=== PATIENT | female | born 1990 | race Caucasian/White ===

== ENCOUNTER 2019-11-19 12:02 | Emergency (ER) | payer BC, OTHER ==
[2019-11-19 12:08] VITALS: RESP 18
[2019-11-19] MEDS ORDERED: KETOROLAC 15 MG/ML 1 ML VIAL IM STA (12:38)
[2019-11-19] MEDS ORDERED: methylPREDNISolone SOD SUCCI 125 MG/2 ML VIAL IM ONE (12:38)
[2019-11-19 13:46] VITALS: BP 136/81; PULSE 66; TEMP 98
--- NOTE | 2019-11-19 13:46 | ED ---
General Adult HPI - General Chief complaint: Back Pain/Injury Stated complaint: low back pain Time Seen by Provider: 11/19/19 12:16 Source: patient, RN notes reviewed Mode of arrival: ambulatory Limitations: no limitations - History of Present Illness Initial comments: 29 year old female presents to the emergency department for a chief complaint of left leg and low back pain. Pain radiates from the back down the left leg. Patient states movement makes the pain worse. States she has some numbness to the lateral aspect of her thigh but denies any other numbness or tingling. Denies weakness of the legs. Denies fevers or chills. Denies changes in bladder or bowel movements. Denies saddle anesthesia. 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 Patient reports this pain worsened 2-3 days ago. States she cannot bend overall the way. States walking is painful but she does not have any difficulty doing so. Patient called orthopedics and they stated she needed a referral also to go to the ER.Patient has no other complaints at this time including shortness of breath, chest pain, abdominal pain, nausea or vomiting, headache, or visual changes. - Related Data Previous Rx's Medication Instructions Recorded predniSONE 50 mg PO DAILY #5 tablet 11/19/19 Allergies Allergy/AdvReac Type Severity Reaction Status Date / Time Sulfa (Sulfonamide Allergy Unknown Verified 11/19/19 13:12 Antibiotics) Childhood Review of Systems ROS Statement: Those systems with pertinent positive or pertinent negative responses have been documented in the HPI. ROS Other: All systems not noted in ROS Statement are negative. Past Medical History Past Medical History: No Reported History Additional Past Medical History / Comment(s): chronic back pain, herniated discs History of Any Multi-Drug Resistant Organisms: None Reported Past Surgical History: No Surgical Hx Reported Past Psychological History: No Psychological Hx Reported Smoking Status: Never smoker Past Alcohol Use History: Occasional Past Drug Use History: None Reported General Exam Limitations: no limitations General appearance: alert, in no apparent distress Head exam: Present: atraumatic, normocephalic, normal inspection Eye exam: Present: normal appearance, PERRL, EOMI. Absent: scleral icterus, conjunctival injection, periorbital swelling ENT exam: Present: normal exam, mucous membranes moist Neck exam: Present: normal inspection. Absent: tenderness, meningismus, lymphadenopathy Respiratory exam: Present: normal lung sounds bilaterally. Absent: respiratory distress, wheezes, rales, rhonchi, stridor Cardiovascular Exam: Present: regular rate, normal rhythm, normal heart sounds. Absent: systolic murmur, diastolic murmur, rubs, gallop, clicks GI/Abdominal exam: Present: soft, normal bowel sounds. Absent: distended, tenderness, guarding, rebound, rigid Extremities exam: Present: full ROM (Full range of motion of the left leg however patient has pain with flexion of the left hip), normal capillary refill (Capillary refill less than 2 seconds, DP pulse 2+), other (Sensation intact throughout lower extremity. Strength 5 out of 5 in bilateral lower extremities.). Absent: calf tenderness (No erythema edema. Negative Homans sign) Back exam: Absent: full ROM (Patient has 45 flexion, extension to neutral position of the lumbar spine.), vertebral tenderness Neurological exam: Present: alert Course Vital Signs 11/19/19 12:05 Temperature 98.7 F Pulse Rate 80 Respiratory 18 Rate Blood Pressure 116/79 O2 Sat by Pulse 100 Oximetry Medical Decision Making - Medical Decision Making HCG was obtained which is negative. Patient was treated with Toradol and a steroid injection. Patient will be given steroids for the next 5 days. She will follow up with orthopedics, referral will be given. If she has worsening symptoms such as any red flag symptoms which were discussed in depth with her she will return to the emergency room. Patient is requesting referral to Dr. Villasenor. Disposition Clinical Impression: Lumbar radiculopathy Disposition: HOME SELF-CARE Condition: Good Instructions (If sedation given, give patient instructions): Acute Low Back Pain (ED), Sciatica (ED) Additional Instructions: Please take steroid starting tomorrow. Take Tylenol for pain on days you're taking steroid. After you finish your course of steroids you can take Motrin as well. Follow up with orthopedics. If you have any worsening symptoms such as bladder or bowel changes, weakness of lower extremities, saddle anesthesia, fevers, or any other worsening symptoms return to the ER. Prescriptions: predniSONE 50 mg PO DAILY #5 tablet Is patient prescribed a controlled substance at d/c from ED?: No Referrals: Vito Soriano MD [Primary Care Provider] - 1-2 days Trenton Villasenor DO [Doctor of Osteopathic Medicine] - 1-2 days Time of Disposition: :43
== END 2019-11-19 14:04 | disposition home or self-care (01) ==
LOC: EC 12:02
DX: M54.16 Radiculopathy, lumbar region (principal); Z88.2 Allergy status to sulfonamides
CPT/HCPCS: 81025; 99283; 96372 ×2; J2930; J1885

== ENCOUNTER 2019-12-04 18:45 | Inpatient (IN) | payer OTHER ==
--- NOTE | 2019-12-04 19:13 | ED ---
Back Pain HPI - General Chief Complaint: Back Pain/Injury Stated Complaint: back pain & leg pain/numbness Time Seen by Provider: 12/04/19 19:02 Source: patient Limitations: no limitations - Related Data Previous Rx's Medication Instructions Recorded predniSONE 50 mg PO DAILY #5 tablet 11/19/19 Allergies Allergy/AdvReac Type Severity Reaction Status Date / Time Sulfa (Sulfonamide Allergy Unknown Verified 12/04/19 18:55 Antibiotics) Childhood Review of Systems ROS Statement: Those systems with pertinent positive or pertinent negative responses have been documented in the HPI. ROS Other: All systems not noted in ROS Statement are negative. Past Medical History Past Medical History: No Reported History Additional Past Medical History / Comment(s): chronic back pain, herniated discs History of Any Multi-Drug Resistant Organisms: None Reported Past Surgical History: No Surgical Hx Reported Past Psychological History: No Psychological Hx Reported Smoking Status: Never smoker Past Alcohol Use History: Occasional Past Drug Use History: None Reported General Exam Limitations: no limitations Course Vital Signs 12/04/19 12/04/19 18:53 20:16 Temperature 98.7 F Pulse Rate 113 H 86 Respiratory 16 18 Rate Blood Pressure 123/77 115/73 O2 Sat by Pulse 96 96 Oximetry Medical Decision Making - Lab Data Result diagrams: 12/04/19 20:10 12/04/19 20:10 Lab Results 12/04/19 12/04/19 12/04/19 Range/Units 20:10 20:10 20:10 WBC 10.9 H (3.8-10.6) k/uL RBC 4.54 (3.80-5.40) m/uL Hgb 13.7 (11.4-16.0) gm/dL Hct 41.2 (34.0-46.0) % MCV 90.8 (80.0-100.0) fL MCH 30.1 (25.0-35.0) pg MCHC 33.1 (31.0-37.0) g/dL RDW 11.8 (11.5-15.5) % Plt Count 326 (150-450) k/uL Neutrophils % 78 % Lymphocytes % 14 % Monocytes % 5 % Eosinophils % 2 % Basophils % 0 % Neutrophils # 8.6 H (1.3-7.7) k/uL Lymphocytes # 1.5 (1.0-4.8) k/uL Monocytes # 0.5 (0-1.0) k/uL Eosinophils # 0.2 (0-0.7) k/uL Basophils # 0.0 (0-0.2) k/uL Sodium 136 L (137-145) mmol/L Potassium 4.3 (3.5-5.1) mmol/L Chloride 104 (98-107) mmol/L Carbon Dioxide 23 (22-30) mmol/L Anion Gap 9 mmol/L BUN 14 (7-17) mg/dL Creatinine 0.69 (0.52-1.04) mg/dL Est GFR (CKD-EPI)AfAm >90 (>60 ml/min/1.73 sqM) Est GFR (CKD-EPI)NonAf >90 (>60 ml/min/1.73 sqM) Glucose 100 H (74-99) mg/dL Calcium 9.7 (8.4-10.2) mg/dL Phosphorus 3.1 (2.5-4.5) mg/dL Magnesium 1.8 (1.6-2.3) mg/dL Total Bilirubin 0.6 (0.2-1.3) mg/dL AST 22 (14-36) U/L ALT 16 (4-34) U/L Alkaline Phosphatase 76 (38-126) U/L Total Protein 7.4 (6.3-8.2) g/dL Albumin 4.5 (3.5-5.0) g/dL Urine Color Light Yellow Urine Appearance Clear (Clear) Urine pH 7.0 (5.0-8.0) Ur Specific [place] 1.006 (1.001-1.035) Urine Protein Negative (Negative) Urine Glucose (UA) Negative (Negative) Urine Ketones Negative (Negative) Urine Blood Negative (Negative) Urine Nitrite Negative (Negative) Urine Bilirubin Negative (Negative) Urine Urobilinogen <2.0 (<2.0) mg/dL Ur Leukocyte Esterase Negative (Negative) Urine HCG, Qual (Not Detectd) 12/04/19 Range/Units 20:26 WBC (3.8-10.6) k/uL RBC (3.80-5.40) m/uL Hgb (11.4-16.0) gm/dL Hct (34.0-46.0) % MCV (80.0-100.0) fL MCH (25.0-35.0) pg MCHC (31.0-37.0) g/dL RDW (11.5-15.5) % Plt Count (150-450) k/uL Neutrophils % % Lymphocytes % % Monocytes % % Eosinophils % % Basophils % % Neutrophils # (1.3-7.7) k/uL Lymphocytes # (1.0-4.8) k/uL Monocytes # (0-1.0) k/uL Eosinophils # (0-0.7) k/uL Basophils # (0-0.2) k/uL Sodium (137-145) mmol/L Potassium (3.5-5.1) mmol/L Chloride (98-107) mmol/L Carbon Dioxide (22-30) mmol/L Anion Gap mmol/L BUN (7-17) mg/dL Creatinine (0.52-1.04) mg/dL Est GFR (CKD-EPI)AfAm (>60 ml/min/1.73 sqM) Est GFR (CKD-EPI)NonAf (>60 ml/min/1.73 sqM) Glucose (74-99) mg/dL Calcium (8.4-10.2) mg/dL Phosphorus (2.5-4.5) mg/dL Magnesium (1.6-2.3) mg/dL Total Bilirubin (0.2-1.3) mg/dL AST (14-36) U/L ALT (4-34) U/L Alkaline Phosphatase (38-126) U/L Total Protein (6.3-8.2) g/dL Albumin (3.5-5.0) g/dL Urine Color Urine Appearance (Clear) Urine pH (5.0-8.0) Ur Specific [place] (1.001-1.035) Urine Protein (Negative) Urine Glucose (UA) (Negative) Urine Ketones (Negative) Urine Blood (Negative) Urine Nitrite (Negative) Urine Bilirubin (Negative) Urine Urobilinogen (<2.0) mg/dL Ur Leukocyte Esterase (Negative) Urine HCG, Qual Not Detected (Not Detectd) Disposition Clinical Impression: Lumbar radiculopathy, Mechanical back pain, Strain of lumbar region, Sciatica Disposition: ADMITTED IP TO THIS HOSP Condition: Fair Is patient prescribed a controlled substance at d/c from ED?: No Referrals: Vito Soriano MD [Primary Care Provider] - 1-2 days
[2019-12-04] MEDS ORDERED: MORPHINE SULFATE 4 MG/ML SYRINGE IV STA (19:27)
[2019-12-04] MEDS ORDERED: SODIUM CHLORIDE 0.9% 1,000 ML IV STA (19:27)
[2019-12-04] MEDS ORDERED: DEXAMETHASONE SOD PHOSPHATE 10 MG/ML 1 ML VIAL IV STA (19:28)
[2019-12-04] MEDS ORDERED: KETOROLAC 15 MG/ML 1 ML VIAL IVP STA (19:28)
[2019-12-04 20:31] LABS: Basophils % (A) 0 %; Eosinophils # (A) 0.2 k/uL (0-0.7); Eosinophils % (A) 2 %; HCT 41.2 % (34.0-46.0); HGB 13.7 gm/dL (11.4-16.0); Lymphocytes # (A) 1.5 k/uL (1.0-4.8); Lymphocytes % (A) 14 %; MCH 30.1 pg (25.0-35.0); MCHC 33.1 g/dL (31.0-37.0); MCV 90.8 fL (80.0-100.0); Mean Platelet Volume 7.7; Monocytes # (A) 0.5 k/uL (0-1.0); Monocytes % (A) 5 %; Neutrophils # (A) 8.6 k/uL (1.3-7.7); Neutrophils % (A) 78 %; Platelet Count 326 k/uL (150-450); RBC 4.54 m/uL (3.80-5.40); RDW 11.8 % (11.5-15.5); WBC 10.9 k/uL (3.8-10.6)
[2019-12-04 20:41] LABS: ALT 16 U/L (4-34); AST 22 U/L (14-36); African American GFR (CKD) >90 (>60 ml/min/1.73 sqM); Albumin 4.5 g/dL (3.5-5.0); Alkaline Phosphatase 76 U/L (38-126); Anion Gap 9 mmol/L; Appearance,Urine Clear (Clear); Bilirubin,Urine Negative (Negative); Blood Urea Nitrogen 14 mg/dL (7-17); Blood,Urine Negative (Negative); Calcium 9.7 mg/dL (8.4-10.2); Carbon Dioxide 23 mmol/L (22-30); Chloride 104 mmol/L (98-107); Color,Urine Light Yellow; Glucose 100 mg/dL (74-99); Glucose,Urine (UA) Negative (Negative); Ketones,Urine Negative (Negative); Leukocyte Esterase,Urine Negative (Negative); Magnesium 1.8 mg/dL (1.6-2.3); Nitrite,Urine Negative (Negative); Non-African American GFR(CKD) >90 (>60 ml/min/1.73 sqM); Phosphorus 3.1 mg/dL (2.5-4.5); Potassium 4.3 mmol/L (3.5-5.1); Protein,Urine Negative (Negative); Sodium 136 mmol/L (137-145); Specific Gravity,Urine 1.006 (1.001-1.035); Total Bilirubin 0.6 mg/dL (0.2-1.3); Total Protein 7.4 g/dL (6.3-8.2); Urobilinogen,Urine <2.0 mg/dL (<2.0)
--- NOTE | 2019-12-04 21:10 | XR ---
EXAMINATION TYPE: XR chest 2V DATE OF EXAM: 12/04/2019 COMPARISON: 05/23/2013 HISTORY: Chest pain TECHNIQUE: 2 views FINDINGS: Heart and mediastinum are normal. The lungs appear clear. Costophrenic angles are clear. Th ere are no hilar masses. There is slight indistinct right cardiac border. IMPRESSION: Right cardiac border indistinct that could relate to some minimal pleural reaction anteri rosa maria. This appears new compared to old exam..
--- NOTE | 2019-12-04 21:19 | CT ---
EXAMINATION TYPE: CT lumbar spine wo con DATE OF EXAM: 12/04/2019 COMPARISON: None HISTORY: Bilateral leg numbness and pain. Pain felt in lumbar region as well. CT DLP: 775.1 mGycm Automated exposure control for dose reduction was used. The lumbar vertebra have normal alignment. Disc spaces are fairly normal. The posterior elements are intact. There is no compression fracture. Facet joints are intact. There is no evidence of lumbar spi nal stenosis. There is no lumbar paraspinal mass. Sacroiliac joints appear intact. There is small pos terior disc bulging at L4-5 and L5-S1 without significant impingement on the neural elements. IMPRESSION: Mild posterior disc bulging in the lower lumbar spine. No spinal stenosis. No fracture.
[2019-12-04] MEDS ORDERED: MORPHINE SULFATE 4 MG/ML SYRINGE IVP PRN (21:40)
--- NOTE | 2019-12-05 10:56 | MR ---
EXAMINATION TYPE: MR lumbar spine wo/w con DATE OF EXAM: 12/05/2019 COMPARISON: 12/04/2019 HISTORY: Low back pain TECHNIQUE: T1 and T2 axial and sagittal images of the lumbar spine are submitted. FINDINGS: There is no abnormal signal seen within the visualized spinal cord or paraspinal soft tissu es. At L1-2 there is no degenerative disc disease, disc herniation, or canal stenosis. At L2-3 there is no degenerative disc disease, disc herniation, foraminal encroachment or canal steno sis. At L3-4 there is no degenerative disc disease, disc herniation, foraminal encroachment or canal steno sis At L4-5 there is there is disc desiccation. Small annular tear with focal small central disc herniati on and mild effacement of thecal sac. Neural foramina remain patent. At L5-S1 there is a large disc herniation centrally and paracentrally left with extrusion of the disc fragment posteriorly and severe compression of the thecal sac. There also appears to be mass effect upon the exiting left nerve root. Discogenic marrow changes with degenerative disc disease noted. IMPRESSION: 1. Large central disc herniation with extrusion of disc posteriorly and paracentrally to the left. Th ere is significant compression of the thecal sac and nerve roots. There is mass effect upon the left nerve root. Disc material extends inferiorly and posterior to the S1 vertebral segment compatible wit h large extruded disc fragment 2. Annular tear and small central disc herniation L4-L5.
[2019-12-05] MEDS: ENOXAPARIN 40 MG/0.4 ML SYRINGE SQ SCH (12:02)
[2019-12-05] MEDS: DEXAMETHASONE SOD PHOSPHATE 4 MG/ML 1 ML VIAL IV SCH ×2 (12:02→17:56)
[2019-12-05] MEDS: NAPROXEN 250 MG TAB PO SCH ×3 (12:03→21:58)
[2019-12-05] MEDS ORDERED: HYDROmorphone 1 MG/ML 1 ML SYRINGE IVP PRN (13:43)
[2019-12-05] MEDS ORDERED: HYDROmorphone 0.5 MG/0.5 ML SYRINGE IVP PRN (13:43)
--- NOTE | 2019-12-05 13:54 | P.CNOR ---
History of Present Illness - HPI Consult date: 12/05/19 Consult reason: low back pain, other History of present illness: Patient is a very pleasant young woman who presented to the hospital in regards to incapacitating low back and lower extremity pain with numbness and tingling. Patient has chronic history of low back issues but over the past few weeks has been having significant changes with the pain in her lower back. She initially started treatment with the emergency room and her primary care physician as an outpatient. She had taken some medication but was not having any relief. Unfortunately of past couple of days she has been having severe worsening of her symptoms at her back and down her lower extremities. She feels severe numbness tingling and burning at her bilateral lower extremities worse on the left than the right. She feels some weakness as she walks with pain. She says she has 1 incident of urinary urgency as well. She has had being severe pain whenever she coughs or sneezes. She has severe pain when she tries to bend and when she tries to move around in bed. She denies any history of trauma. She denies any injury. Review of Systems As stated per HPI. She has pain with her she coughs or sneezes. The pain extends down her legs and her ankles bilaterally worse on the left than the right. She denies any saddle numbness or paresthesias. She denies changes in bowel function. She denies any chest pain shortness of breath. Denies any recent injury or trauma. She is normally fully active without any significant restrictions. She is just finished with nursing school. 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 History of Any Multi-Drug Resistant Organisms: None Reported Past Surgical History: No Surgical Hx Reported Past Anesthesia/Blood Transfusion Reactions: No Reported Reaction Past Psychological History: Anxiety Smoking Status: Never smoker Past Alcohol Use History: Occasional Past Drug Use History: None Reported - Past Family History Mother Family Medical History: Hypertension Medications and Allergies Home Medications Medication Instructions Recorded Confirmed Type Cyclobenzaprine [Flexeril] 10 mg PO HS PRN 12/04/19 12/04/19 History Allergies Allergy/AdvReac Type Severity Reaction Status Date / Time shellfish derived [Shellfish] Allergy Severe Wheezing Verified 12/05/19 00:17 Sulfa (Sulfonamide Allergy Unknown Unknown Verified 12/05/19 00:17 Antibiotics) Childhood Physical Examination Osteopathic Statement: *. No significant issues noted on an osteopathic structural exam other than those noted in the History and Physical/Consult. - L Spine: dermatomal strength & reflexes bilateral Strength: hip flexion: 5/5 (Pain with hip flexion. Her chest is good excursion deep inspiration and expiration abdomen soft nontender neck is nontender to palp ation upper extremities have full active and passive range of motion) Strength: ankle plantar flexion: 4/5 (Her back is clear without any tenderness. Her lower extremities have positive straight leg raise and positive Lasegue's sign. She has no saddle paresthesias. No hyperreflexia. She has some 4 out of 5 weakness on the left with plantar flexion. Sensory is intact throughout. Abdomen is soft.) Results - Labs Labs: Abnormal Lab Results - Last 24 Hours (Table) 12/04/19 12/04/19 Range/Units 20:10 20:10 WBC 10.9 H (3.8-10.6) k/uL Neutrophils # 8.6 H (1.3-7.7) k/uL Sodium 136 L (137-145) mmol/L Glucose 100 H (74-99) mg/dL H & H 12/04/19 Range/Units 20:10 Hgb 13.7 (11.4-16.0) gm/dL Hct 41.2 (34.0-46.0) % Result Diagrams: 12/04/19 20:10 12/04/19 20:10 - Diagnostic results Lumbar MRI with contrast: report reviewed, image reviewed (The patient has computed tomography scan in the lumbar MRIs well today. I reviewed the above. She has an obvious very large massive disc herniation L5-S1 with extruded disc centrally worse on the left than the right. She has severe stenosis due to disc herniation. There is some disc changes at L) CT Scan - lumbar: report reviewed, image reviewed (Continuing from the lumbar MRI. There is some disc changes L4 5 L5-S1. She has Modic changes L5-S1. There is some disc bulging at L4 5 without extrusion or stenosis.) Assessment and Plan Assessment: Massive disc herniation L5-S1 with severe stenosis lower extremity radiculopathy with mild weakness Degenerative disc disease L4 5 L5-S1 intractable pain Plan: Massive disc herniation L5-S1 with severe stenosis lower extremity radiculopathy with mild weakness Degenerative disc disease L4 5 L5-S1 intractable pain The patient has a massive disc herniation at L5-S1 which correlates very well with her low back and lower extremity symptoms. She is having severe lower extremity radiculopathy with some mild weakness on the left. This relates well with the S1 nerve root where she has her stenosis. She has some chronic changes L4 5 and L5-S1 but I think she has an acute change with disc herniation. She had tried some conservative treatment with medication over the past few weeks but is only having worsening. She is not having any significant benefit with IV steroids thus far. With her significant symptoms and the size of the disc herniation I think that she is a good candidate for surgical intervention in the form of laminectomy discectomy at L5-S1. I think we would be able to get good decompression of the nerve roots and significantly improve her lower extremity symptoms and function. Though she does have some disc degeneration and Modic changes, with her young age and activity I would not plan on pursuing fusion at this point. She does understand that she has had some chronic issues at her lower back and issues in the future as well. Nonetheless, I think that acutely her disc herniation is new and that is causing her severe symptoms at this point. I think she can do very well with laminectomy discectomy L5-S1 in surgery. We discussed possibly conservative treatment further and I will consult interventional pain management as well. The patient is leaning towards possibly surgery and will continue to think about this and discuss it with her mother. If she does pursue surgical intervention we'll start preparation and Her nothing by mouth after midnight and have her sign appropriate consent forms. Time with Patient: Greater than 30
--- NOTE | 2019-12-05 14:36 | P.PN ---
Progress Note - Text Progress Note Date: 12/05/19 This is 29 years old female with a chronic history of low back pain started 11 years ago, she was admitted yesterday because of intractable back pain, with radiation to the lower extremity bilaterally her MRI showed massive herniated disc disease at L5-S1, i.e. discussed with the patient the option of doing lumbar epidural steroid injection but patient reported that she already decided to proceed with the surgical option, patient will be boarded for surgery tomorrow by Dr. Villasenor, and there is no need to do any interventional pain management
--- NOTE | 2019-12-05 18:18 | P.HPIM ---
History of Present Illness H&P Date: 12/05/19 Chief Complaint: No back pain History of presenting complaint: This is a very pleasant 29-year-old patient of Dr. Vito Soriano. 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 She then was found to have herniated disc and she did follow with Dr. Harden.. She was managed conservatively and also had some physical therapy done by Dr. Meeks. About 3 weeks ago patient the lumbar sharp shooting pain down the left buttock burning sensation and presented to the ER. She was given Toradol and IV steroid injection and told to follow with the PCP. Also left ear was made to the orthopedic spine physician Dr. Harden. She also follow up with thepatient Dr. Soriano's office. MRI was scheduled for a few weeks. Patient now presents with worsening pain in the lower back numbness going down the buttock and back of both legs. Slight weakness in walking. Presented to ER. Computed tomography scan done showed mild posterior disc bulging in the lower lumbar spine. Review of systems: GEN.: None EYES: None HEENT: None NECK: None RESPIRATORY: None CARDIOVASCULAR: None GASTROINTESTINAL: None GENITOURINARY: None MUSCULOSKELETAL: As above LYMPHATICS: None HEMATOLOGICAL: None PSYCHIATRY: None NEUROLOGICAL: As above Past medical history to include: Chronic herniated disc 2-11 years ago Social history: Does not smoke or drink alcohol. Lives with her parents. He is a registered nurse currently not working. Physical examination: VITAL SIGNS: 98.3, 89, 16, 1304, 95% room air GENERAL:. BMI 29.1, laying in bed, slightly uncomfortable. EYES: Pupils equal. Conjunctiva normal. HEENT: External appearance of nose and ears normal, oral cavity grossly normal. NECK: JVD not raised; masses not palpable. HEART: First and second heart sounds are normal; no edema. LUNGS: Respiratory rate normal; clear to auscultation. ABDOMEN: Soft, nontender, liver spleen not palpable, no masses palpable. PSYCH: Alert and oriented x3; mood and affect normal. NEUROLOGICAL: [Cranial nerves grossly intact; no facial asymmetry, able to raise the right leg to about 40 left leg to about 30. Increased reflexes on the left knee. Bilateral plantars downgoing. Sensation grossly present. LYMPHATICS: No lymph nodes palpable in the axilla and neck INVESTIGATIONS, reviewed in the clinical context: White count 10.9 hemoglobin 13.7 platelets 26 increased neutrophils potassium 4.3 creatinine 0.69 UA positive Urinary hCG-not detected Lumbar spine CT-mild posterior disc bulging in the lower lumbar spine MRI lumbar spine-large central disc herniation at L5-S1 and paracentrally left with extrusion of the disc fragment posteriorly and severe compression of the thecal sac. Also mass effect upon the exiting left nerve root. Assessment: -This is a patient with known chronic herniation 11 years ago following a gymnast injury. She was then managed conservatively and with physical therapy. Now presents with worsening numbness in both the legs posteriorly and burning sensation of the left leg. Patient now found to have a large central disc herniation at L5-S1 level with severe compression of the thecal sac. Radiculop athy on the left side. -Severe left-sided radiculopathy Plan: Starting the patient on IV dexamethasone and scheduled NSAIDs. Care was discussed with the patient. Questions answered. She was explained about the possibility of surgery. I spoke to Dr. Harden from orthopedic spine. He'll see the patient today. DVT prophylaxis. Expect patient to stay more than 2 nights in the hospital. Past Medical History Past Medical History: No Reported History Additional Past Medical History / Comment(s): chronic back pain, 2 herniated di scs-for 11 years from gymnastics. History of Any Multi-Drug Resistant Organisms: None Reported Past Surgical History: No Surgical Hx Reported Past Anesthesia/Blood Transfusion Reactions: No Reported Reaction Past Psychological History: Anxiety Smoking Status: Never smoker Past Alcohol Use History: Occasional Past Drug Use History: None Reported - Past Family History Mother Family Medical History: Hypertension Medications and Allergies Home Medications Medication Instructions Recorded Confirmed Type Cyclobenzaprine [Flexeril] 10 mg PO HS PRN 12/04/19 12/04/19 History Allergies Allergy/AdvReac Type Severity Reaction Status Date / Time shellfish derived [Shellfish] Allergy Severe Wheezing Verified 12/05/19 00:17 Sulfa (Sulfonamide Allergy Unknown Unknown Verified 12/05/19 00:17 Antibiotics) Childhood Physical Exam Vitals: Vital Signs Temp Pulse Pulse Resp BP BP Pulse Ox 12/05/19 07:59 98 F 75 18 105/64 98 12/05/19 00:03 98.4 F 97 18 125/83 97 12/04/19 23:53 98.3 F 89 16 113/74 95 12/04/19 21:40 98.0 F 71 18 114/72 99 12/04/19 20:16 86 18 115/73 96 12/04/19 18:53 98.7 F 113 H 16 123/77 96 Intake and Output 12/04/19 12/05/19 12/05/19 22:59 06:59 14:59 Intake Total 580 Balance 580 Intake: Oral 580 Other: Voiding Method Toilet # Voids 1 Weight 79.379 kg 79.379 kg Results CBC & Chem 7: 12/04/19 20:10 12/04/19 20:10 Labs: Abnormal Lab Results - Last 24 Hours (Table) 12/04/19 12/04/19 Range/Units 20:10 20:10 WBC 10.9 H (3.8-10.6) k/uL Neutrophils # 8.6 H (1.3-7.7) k/uL Sodium 136 L (137-145) mmol/L Glucose 100 H (74-99) mg/dL Thrombosis Risk Factor Assmnt - Choose All That Apply Any of the Below Risk Factors Present?: Yes Each Factor Represents 1 point: Obesity (BMI >25) Other Risk Factors: No Other congenital or acquired thrombophilia - If yes, enter type in comment: No Thrombosis Risk Factor Assessment Total Risk Factor Score: 1 Thrombosis Risk Factor Assessment Level: Low Risk
[2019-12-06] MEDS: DEXAMETHASONE SOD PHOSPHATE 4 MG/ML 1 ML VIAL IV SCH ×5 (00:34→23:22)
[2019-12-06] MEDS: NAPROXEN 250 MG TAB PO SCH ×3 (07:38→22:13)
[2019-12-06] MEDS: ENOXAPARIN 40 MG/0.4 ML SYRINGE SQ SCH (07:38)
--- NOTE | 2019-12-06 07:43 | P.PN ---
Progress Note - Text Progress Note Date: 12/06/19 The patient is seen and examined at bedside. She continues to have severe pain in her bilateral lower extremities. I appreciate the consult from interventional pain management. Her exam is unchanged. She has some mild weakness of plantarflexion on the left. Otherwise she is afebrile stable vital signs. Abdomen is soft nontender. Assessment and plan Massive disc herniation L5-S1 Bilateral lower extremity radiculopathy Incapacitating back and leg pain The patient is having severe symptoms due to her new disc herniation at L5-S1. I think that she is a good candidate for laminectomy decompression with discectomy. She is incapacitated with pain and has been having worsening despit e treatment over the past few weeks. We discussed her treatment options with her at length ranging from continuing conservative treatment to possibly of injections and possible surgery. We discussed the risk, patient's alternatives and benefits of surgery including but not limited to risk of bleeding risk of infection risk and need for further surgery. She understands these risks and her issues and she would like to proceed with surgical intervention as soon as possible. We'll plan for laminotomy decompression with discectomy at L5-S1 with her today. She should maintain her nothing by mouth status. We'll hold her Lovenox today.
[2019-12-06] MEDS: SODIUM CHLORIDE 0.9% 1,000 ML IV SCH ×4 (07:55→20:32)
[2019-12-06] MEDS ORDERED: SUCCINYLCHOLINE CHLORIDE 100 MG/5 ML SYR IV ONE (16:54)
[2019-12-06] MEDS ORDERED: MIDAZOLAM 2 MG/2 ML VIAL ONE (16:54)
[2019-12-06] MEDS ORDERED: PROPOFOL 10 MG/ML 20 ML VIAL IV ONE (16:54)
[2019-12-06] MEDS ORDERED: fentaNYL (PF) 50 MCG/ML 2 ML AMP ONE (16:54)
[2019-12-06] MEDS ORDERED: LIDOCAINE 1% INJ 10MG/ML (20 ML MDV) ONE (16:54)
[2019-12-06] MEDS ORDERED: HYDROmorphone (PF) 1 MG/ML ONE (16:54)
[2019-12-06] MEDS ORDERED: LIDOCAINE 0.5%-EPI 1:200,000 50 ML VIAL SQ ONE ×2 (17:00)
[2019-12-06] MEDS ORDERED: SODIUM CHLORIDE 0.9% 50 ML with ceFAZolin 2,000 MG IV ONE ×2 (17:15)
[2019-12-06] MEDS ORDERED: methylPREDNISolone ACETATE 80 MG/ML 1 ML VIAL INTRAARTIC ONE ×2 (17:29→18:07)
[2019-12-06] MEDS ORDERED: GELATIN SPONGE,ABSORB (SMALL) 1 EACH SPONGE TOPICAL ONE (17:29)
[2019-12-06] MEDS ORDERED: THROMBIN (BOVINE) 5,000 UNIT VIAL TOPICAL ONE (17:31)
[2019-12-06] MEDS ORDERED: ceFAZolin 1,000 MG in SODIUM CHLORIDE 0.9% 1,000 ML IRRIGATION ONE (17:34)
[2019-12-06] MEDS ORDERED: HYDROmorphone 1 MG/ML 1 ML SYRINGE IVP PRN (18:33)
[2019-12-06] MEDS ORDERED: HYDROmorphone 0.5 MG/0.5 ML SYRINGE IVP PRN (18:33)
[2019-12-06] MEDS ORDERED: BENZOCAINE/MENTHOL LOZENG 1 EACH LOZENGE MUCOUS MEM PRN (18:33)
[2019-12-06] MEDS ORDERED: HYDROcodone/APAP 5-325MG 1 EACH TAB PO PRN ×2 (18:35)
[2019-12-06] MEDS ORDERED: IBUPROFEN 600 MG TAB PO PRN (18:35)
[2019-12-06] MEDS ORDERED: ONDANSETRON 4 MG/2 ML VIAL IVP PRN (18:35)
[2019-12-06] MEDS ORDERED: KETOROLAC 15 MG/ML 1 ML VIAL IVP PRN (18:35)
--- NOTE | 2019-12-06 18:42 | P.OP ---
Date of Procedure: 12/06/19 Preoperative Diagnosis: Massive Herniated nucleus pulposis L5-S1, lower extremity radiculopathy, degenerative disc disease Postoperative Diagnosis: Same Anesthesia: GETA Pathology: none sent Condition: stable Disposition: PACU Description of Procedure: BRIEF OPERATIVE NOTE Preoperative Diagnosis:Massive Herniated nucleus pulposis L5-S1, lower extremity radiculopathy, degenerative disc disease Postoperative Diagnosis:Massive Herniated nucleus pulposis L5-S1, lower extremity radiculopathy, degenerative disc disease Procedure: Laminectomy and decompression L5-S1 Discectomy for decompression L5-S1 Use of fluoroscopic guidance Surgeon: Dr. Villasenor Bag Maker: Surgical scrub nurse Anesthesia: General anesthesia per Dr. Garcia Estimated blood loss: Approximately 50 mL Complications: None apparent Components implanted: None Disposition: To recovery room in good stable condition. OPERATIVE INDICATIONS The patient has been having severe issues in their lower back and lower extremities. She has long-term low back pain but several weeks ago was having increased of her back pain severely. She attempted conservative treatment however was continued have worsening and then 2 weeks ago had incapacitating increase of the severity of her pain at her back and lower extremities. She is having some weakness at her lower extremities and was essentially bedbound due to her pain and symptoms. She is found to have a massive disc herniation at L5- S1 which correlated well with her low back and lower extremity symptoms. The patient has been through conservative treatment. Despite this she was having worsening. We discussed the possibility of interventional pain management with the patient's massive disc herniation as well as her lower extremity symptoms and incapacitating pain she was initially in pursuing surgical options as soon as possible. We discussed various treatment options including surgery, and the patient wishes to proceed with surgery We discussed the risk, patient's alternatives and benefits of surgery including but not limited to, risk of bleeding risk of infection, risk of need for further surgery, risk of decreased, loss of motion, loss of function, nerve damage, paralysis, heart attack, blindness and . OPERATIVE SUMMARY After discussing all the risks, patient alternatives and benefits at length, the patient elected to proceed with surgical intervention, signed informed consent, and presented for their procedure. The patient was seen and examined in the preoperative holding area and the surgical site was marked. The patient was given antibiotics and brought to the operating room. The patient was sedated and intubated by anesthesia in standard fashion. The patient was positioned on to the operating room table in a prone position on the appropriate frame which was well-padded and well molded. We were careful to pad any bony prominences and pressure points. We were careful to maintain the patient's cervical spine and good neutral alignment and position throughout. The patient was prepped and draped in a normal standard fashion. An appropriate timeout and keystone protocol performed. We were able to proceed with the surgery. Fluoroscopy was utilized to establish the appropriate level. The local wound area was infiltrated with local anesthetic. An incision was made at the midline longitudinally over the appropriate levels at L5-S1. Dissection was taken down subcutaneously to the level of the fascia which was split midline. Dissection was taken over the lamina. Intraoperative fluoroscopy was taken which showed a marker at the appropriate level of L5-S1. With the appropriate level positively confirmed, we were able to proceed with laminectomy. The wound was copiously irrigated and suctioned dry as had been done periodically throughout the case. I performed a laminectomy on the left side of L5-S1 with a combination of curettes and a high-speed bur and Kerrison rongeurs. A small medial facetectomy was performed again further access. A partial foraminotomy was also performed. Portions of the ligamentum flavum were taken down to expose the dura and traversing nerve root. I was able to mobilize the traversing nerve root and gain access to the disc space. Note was made of obvious compression from the disc. The disc herniation was massive and quite centralized. Protecting the soft tissue structures, a small annulotomy was established. It took significant amount of dissection and manipulation in order to free up the disc. I was able to perform discectomy and remove any extruded disc fragments and any loose fragments from within the disc itself. The disc herniation was massive when it was extruded and we are able take pictures of it. It measured approximately 3 cm in size. There is some significant disc desiccation noted. I tried to preserve the disc annulus that appeared stable. There were no further extruded fragments noted. There is no evidence of dural tear or leak. Good hemostasis maintained. The wound was copiously irrigated and suctioned dry. Good decompression and discectomy was noted. We were able to proceed with closure. The fascia was closed for a watertight closure. The subcuticular tissue was closed with absorbable suture. The wound was cleaned and dried and dressed with the appropriate dressing. The drapes were broken down. The patient was gently rolled back onto their hospital bed being careful to maintain their cervical spine and good neutral alignment and position. They were woken up by anesthesia, extubated, and brought to the recovery room in good stable condition. The patient will be admitted to the hospital for observation and for appropriate postoperative care, medical management and monitoring. We will continue to follow them closely about the postoperative course.
[2019-12-06] MEDS ORDERED: ONDANSETRON 4 MG/2 ML VIAL IVP ONE (19:06)
--- NOTE | 2019-12-06 21:44 | P.PN ---
Progress Note - Text Progress Note Date: 12/06/19 Chief Complaint: Worsening back pain History of presenting complaint: This is a very pleasant 29-year-old patient of Dr. Vito Soriano. 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 She then was found to have herniated disc and she did follow with Dr. Harden.. She was managed conservatively and also had some physical therapy done by Dr. Meeks. About 3 weeks ago patient the lumbar sharp shooting pain down the left buttock burning sensation and presented to the ER. She was given Toradol and IV steroid injection and told to follow with the PCP. Also left ear was made to the orthopedic spine physician Dr. Harden. She also follow up with thepatient Dr. Soriano's office. MRI was scheduled for a few weeks. Patient now presents with worsening pain in the lower back numbness going down the buttock and back of both legs. Slight weakness in walking. Presented to ER. Computed tomography scan done showed mild posterior disc bulging in the lower lumbar spine. MRI showed large spinal disc herniation at L5-S1 with severe compression of the thecal sac. And compressing upon the exiting left nerve root. Dr. Harden from orthopedics was consulted. Patient started IV steroids and NSAIDs. Today-so the patient this morning. Awaiting to go down for surgery later today. Lower back pain is controlled. No urine incontinence. Review of systems: Was done for constitutional, cardiovascular, GI, pulmonary. relevant finding as above Active Medications Hydrocodone Bitart/Acetaminophen (Hydrocodone/Apap 5-325mg 1 Each Tab) 1 each PO Q4HR PRN PRN Reason: Moderate Pain Hydrocodone Bitart/Acetaminophen (Hydrocodone/Apap 5-325mg 1 Each Tab) 2 each PO Q4HR PRN PRN Reason: Moderate Pain Benzocaine/Menthol (Benzocaine/Menthol Lozeng 1 Each Lozenge) 1 each MUCOUS MEM Q4HR PRN PRN Reason: Sore Throat Dexamethasone Sodium Phosphate (Dexamethasone Sod Phosphate 4 Mg/Ml 1 Ml Vial) 4 mg IV Q6HR [facility] Last Admin: 12/06/19 20:31 Dose: Not Given Documented by: Enoxaparin Sodium (Enoxaparin 40 Mg/0.4 Ml Syringe) 40 mg SQ DAILY [facility] Last Admin: 12/06/19 07:38 Dose: Not Given Documented by: Hydromorphone HCl (Hydromorphone 0.5 Mg/0.5 Ml Syringe) 0.5 mg IVP Q4HR PRN PRN Reason: Pain SCALE 1-5 Hydromorphone HCl (Hydromorphone 1 Mg/Ml 1 Ml Syringe) 1 mg IVP Q4HR PRN PRN Reason: Pain SCALE 6-10 Hydromorphone HCl (Hydromorphone 0.5 Mg/0.5 Ml Syringe) 0.5 mg IVP Q4HR PRN PRN Reason: Pain Hydromorphone HCl (Hydromorphone 1 Mg/Ml 1 Ml Syringe) 1 mg IVP Q4HR PRN PRN Reason: Pain Sodium Chloride (Saline 0.9%) 1,000 mls @ 40 mls/hr IV .Q24H [facility] Last Admin: 12/06/19 16:54 Dose: 700 mls Documented by: Sodium Chloride (Saline 0.9%) 1,000 mls @ 75 mls/hr IV .[id number] [facility] Last Admin: 12/06/19 20:32 Dose: Not Given Documented by: Cefazolin Sodium 2 gm/ Sodium (Chloride) 50 mls @ 100 mls/hr IVPB Q8HR [facility] Stop: 12/07/19 08:29 Ibuprofen (Ibuprofen 600 Mg Tab) 600 mg PO Q6HR PRN PRN Reason: Mild Pain Ketorolac Tromethamine (Ketorolac 15 Mg/Ml 1 Ml Vial) 15 mg IVP Q6HR PRN PRN Reason: Pain Stop: 12/09/19 00:01 Morphine Sulfate (Morphine Sulfate 4 Mg/Ml Syringe) 4 mg IVP Q4HR PRN PRN Reason: Pain Last Admin: 12/05/19 00:21 Dose: 4 mg Documented by: Naproxen (Naproxen 250 Mg Tab) 250 mg PO TID [facility] Last Admin: 12/06/19 17:19 Dose: Not Given Documented by: Ondansetron HCl (Ondansetron 4 Mg/2 Ml Vial) 4 mg IVP Q6HR PRN PRN Reason: Nausea Physical examination: VITAL SIGNS: 98.3, 62, 16, 105/69, 99% on room air GENERAL:. laying in bed, comfortable. EYES: Pupils equal. Conjunctiva normal. NECK: JVD not raised; masses not palpable. HEART: First and second heart sounds are normal; no edema. LUNGS: Respiratory rate normal; clear to auscultation. ABDOMEN: Soft, nontender, liver spleen not palpable, no masses palpable. PSYCH: Alert and oriented x3; mood and affect normal. NEUROLOGICAL: [Cranial nerves grossly intact; no facial asymmetry, able to raise the right leg to about 40 left leg to about 30. Increased reflexes on the left knee. Bilateral plantars downgoing. Sensation grossly present. INVESTIGATIONS, reviewed in the clinical context: White count 10.9 hemoglobin 13.7 platelets 26 increased neutrophils potassium 4.3 creatinine 0.69 UA positive Urinary hCG-not detected Lumbar spine CT-mild posterior disc bulging in the lower lumbar spine MRI lumbar spine-large central disc herniation at L5-S1 and paracentrally left with extrusion of the disc fragment posteriorly and severe compression of the thecal sac. Also mass effect upon the exiting left nerve root. Assessment: -This is a patient with known chronic herniation 11 years ago following a gymnast injury. She was then managed conservatively and with physical therapy. Now presents with worsening numbness in both the legs posteriorly and burning s ensation of the left leg. Patient now found to have a large central disc herniation at L5-S1 level with severe compression of the thecal sac. Radiculopathy on the left side. -Severe left-sided radiculopathy Plan: patient on IV dexamethasone and scheduled NSAIDs. Patient related this evening underwent L5-S1 laminectomy and discectomy.
[2019-12-07] MEDS: DEXAMETHASONE SOD PHOSPHATE 4 MG/ML 1 ML VIAL IV SCH (05:47)
[2019-12-07] MEDS: ENOXAPARIN 40 MG/0.4 ML SYRINGE SQ SCH (07:02)
[2019-12-07] MEDS: NAPROXEN 250 MG TAB PO SCH (07:02)
--- NOTE | 2019-12-07 07:20 | FL ---
Fluoroscopy HISTORY: Lumbar laminectomy 4 seconds fluoroscopy time supplied to the referring clinician. 1 intraoperative C-arm images docume nt the procedure. See dictated report from orthopedic surgery.
--- NOTE | 2019-12-07 07:21 | XR ---
Limited lumbar spine HISTORY: Lumbar laminectomy Single intraoperative C-arm image documents the procedure
[2019-12-07] MEDS: SODIUM CHLORIDE 0.9% 1,000 ML IV SCH (08:26)
[2019-12-07 09:22] VITALS: BP 187/65; PULSE 65; RESP 18; TEMP 98.3
--- NOTE | 2019-12-07 10:16 | P.DS ---
Providers Date of admission: 12/05/19 11:45 Attending physician: Mane Guzman Consults: 12/05/19 11:52 Consult Physician Routine Consulting Provider: Trenton Villasenor Consult Reason/Comments: herniated lumbar disc Do you want consulting provider notified?: Already Contacted Primary care physician: Vito Mathur [facility] Course: The patient presented on the on the day of admission due to her severe back pain and lower extremity radiculopathy. She was found have a massive disc herniation L5-S1 which quite well with her symptoms. She was incapacitated due to her pain from the disc herniation. After discussing various treatment options including conservative treatment interventional pain management in the possibly of surgery patient like to proceed with surgical intervention and underwent surgery as per her operative note yesterday. The patient says she is doing significant benefit. She is very happy with results in her lower extremities. She says she is moving around quite well. She has some soreness around her surgical site as expected and they're still some numbness at her left leg as expected. Physical Exam The incision site is clean dry and intact. There is no erythema no drainage. There is no purulence no evidence of infection. There is no bleeding on the site. The dressings intact. Abdomen soft and nontender. Chest has good excursion with deep inspiration and expiration. The patient has active and passive range of motion intact at the upper and lower extremities. There is no acute change in neurologic status. She has sustained dorsal flexion plantar flexion and EHL there is still some mild weakness of plantar flexion left. Calves and thighs soft and nontender. Hospital Course Postoperative day 1 status post laminectomy decompression and discectomy of L5- S1 for her massive disc herniation with back pain and lower extremity radiculopathy The patient is doing very well and is happy with results of surgery. The patient has been making good progress postoperatively. They have completed the prophylactic antibiotics without any signs or symptoms of infection. The patient has been able to advance their diet, and is tolerating diet adequately. The pain was initially controlled with IV medications and is now controlled appropriately with oral medications. The patient has been able to increase their mobilization. She has been able to walk around the area and medical floor. The patient has progressed appropriately. I think they are in good stable condition for discharge today. They will be sent home with appropriate prescriptions. I answered their questions to the best of my ability in a language that they can understand and they are agreeable with the plan. They will follow up as directed in approximately 10 days or sooner if she is having any problems. Patient Condition at Discharge: Good Plan - Discharge Summary Discharge Rx Participant: No New Discharge Prescriptions: New HYDROcodone/APAP 5-325MG [[place] 5] 1 each PO Q4HR PRN #42 tab PRN Reason: Pain No Action Cyclobenzaprine [Flexeril] 10 mg PO HS PRN PRN Reason: Muscle Spasm Discharge Medication List Cyclobenzaprine [Flexeril] 10 mg PO HS PRN 12/04/19 [History] HYDROcodone/APAP 5-325MG [[place] 5] 1 each PO Q4HR PRN #42 tab 12/07/19 [Rx] Follow up Appointment(s)/Referral(s): Vito Soriano MD [Primary Care Provider] - 1-2 days Trenton Villasenor DO [Doctor of Osteopathic Medicine] - 10 Days Activity/Diet/Wound Care/Special Instructions: Keep site clean. May shower with waterproof Tegaderm intact. Do not soak in a tub. After 72 hours postoperatively, patient May remove dressing and then may shower with area uncovered. Leave Steri-Strips intact and allow them to fray off on their own. May ambulate as tolerated. Avoid heavy or rigorous activity. No repetitive bending twisting or lifting. No overhead work. Discharge Disposition: HOME SELF-CARE
--- NOTE | 2019-12-07 19:56 | P.DS ---
Providers Date of admission: 12/05/19 11:45 Expected date of discharge: 12/07/19 Attending physician: Mane Guzman Consults: 12/05/19 11:52 Consult Physician Routine Consulting Provider: Trenton Villasenor Consult Reason/Comments: herniated lumbar disc Do you want consulting provider notified?: Already Contacted Primary care physician: Vito Soriano [facility] Course: Chief Complaint: Worsening back pain History of presenting complaint: This is a very pleasant 29-year-old patient of Dr. Vito Soriano. 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 She then was found to have herniated disc and she did follow with Dr. Harden.. She was managed conservatively and also had some physical therapy done by Dr. Meeks. About 3 weeks ago patient the lumbar sharp shooting pain down the left buttock burning sensation and presented to the ER. She was given Toradol and IV steroid injection and told to follow with the PCP. Also left ear was made to the orthopedic spine physician Dr. Harden. She also follow up with thepatient Dr. Soriano's office. MRI was scheduled for a few weeks. Patient now presents with worsening pain in the lower back numbness going down the buttock and back of both legs. Slight weakness in walking. Presented to ER. Computed tomography scan done showed mild posterior disc bulging in the lower lumbar spine. MRI showed large spinal disc herniation at L5-S1 with severe compression of the thecal sac. And compressing upon the exiting left nerve root. Dr. Harden from orthopedics was consulted. Patient started IV steroids and NSAIDs. Patient taken to the OR. L5-S1 laminectomy was done including disc removal. Today-patient doing well. Ambulating. Pain was controlled. No trouble urination. Cleared by Dr. Harden. Discussed with the patient Consultation: [facility] Physical examination: VITAL SIGNS: 98.3, 65, 18, 97 (room air GENERAL:. laying in bed, comfortable. EYES: Pupils equal. Conjunctiva normal. NECK: JVD not raised; masses not palpable. HEART: First and second heart sounds are normal; no edema. LUNGS: Respiratory rate normal; clear to auscultation. ABDOMEN: Soft, nontender, liver spleen not palpable, no masses palpable. PSYCH: Alert and oriented x3; mood and affect normal. NEUROLOGICAL: She did ambulate to the bathroom comfortably INVESTIGATIONS, reviewed in the clinical context: White count 10.9 hemoglobin 13.7 platelets 26 increased neutrophils potassium 4.3 creatinine 0.69 UA positive Urinary hCG-not detected Lumbar spine CT-mild posterior disc bulging in the lower lumbar spine MRI lumbar spine-large central disc herniation at L5-S1 and paracentrally left with extrusion of the disc fragment posteriorly and severe compression of the thecal sac. Also mass effect upon the exiting left nerve root. Assessment: -This is a patient with known chronic herniation 11 years ago following a gymnast injury. She was then managed conservatively and with physical therapy. Now presents with worsening numbness in both the legs posteriorly and burning sensation of the left leg. Patient now found to have a large central disc herniation at L5-S1 level with severe compression of the thecal sac. Radiculopathy on the left side. Status post surgery -Severe left-sided radiculopathy Disposition: Home Patient Condition at Discharge: Good Plan - Discharge Summary Discharge Rx Participant: No New Discharge Prescriptions: New HYDROcodone/APAP 5-325MG [[place] 5] 1 each PO Q4HR PRN #42 tab PRN Reason: Pain Ibuprofen [Motrin] 600 mg PO Q6HR PRN tab PRN Reason: Mild Pain Continue Cyclobenzaprine [Flexeril] 10 mg PO HS PRN PRN Reason: Muscle Spasm Discharge Medication List Cyclobenzaprine [Flexeril] 10 mg PO HS PRN 12/04/19 [History] HYDROcodone/APAP 5-325MG [[place] 5] 1 each PO Q4HR PRN #42 tab 12/07/19 [Rx] Ibuprofen [Motrin] 600 mg PO Q6HR PRN tab 12/07/19 [Rx] Follow up Appointment(s)/Referral(s): Trenton Villasenor DO [Doctor of Osteopathic Medicine] - 10 Days (office closed at time of discharge. Please call to make appointment) Vito Soriano MD [Primary Care Provider] - 1-2 days (office closed at time of discharge. Please call to make appointment) Patient Instructions/Handouts: Lumbar Discectomy (DC) Activity/Diet/Wound Care/Special Instructions: Keep site clean. May shower with waterproof Tegaderm intact. Do not soak in a tub. After 72 hours postoperatively, patient May remove dressing and then may shower with area uncovered. Leave Steri-Strips intact and allow them to fray off on their own. May ambulate as tolerated. Avoid heavy or rigorous activity. No repetitive bending twisting or lifting. No overhead work. Discharge Disposition: HOME SELF-CARE
== END 2019-12-07 13:00 | disposition home or self-care (01) | DRG 520 ==
LOC: EC 18:45 → 6PED 21:39 → OBSVTOIN 12-05 11:45 → 4SSUR 12-06 20:04
PROVIDERS: ADMIT Hospitalist; ATTEND Hospitalist
PROC: 00NY0ZZ Release Lumbar Spinal Cord, Open Approach (ICD-10-PCS; principal; 2019-12-06 16:40)
PROC: 0SB40ZZ Excision of Lumbosacral Disc, Open Approach (ICD-10-PCS; principal; 2019-12-06 16:40)
DX: M51.17 Intervertebral disc disorders with radiculopathy, lumbosacral region (principal); M48.07 Spinal stenosis, lumbosacral region; M51.16 Intervertebral disc disorders with radiculopathy, lumbar region; F41.9 Anxiety disorder, unspecified; Z88.2 Allergy status to sulfonamides; Z82.49 Family history of ischemic heart disease and other diseases of the circulatory system; Z91.013 Allergy to seafood
CPT/HCPCS: 36415; 71046; 72020; 72131; 72158; 80053; 81003; 81025; 83735; 84100; 85025; 96361; 96374; 96375; 99285

== ENCOUNTER 2021-02-03 23:03 | Emergency (ER) | payer MEDICAID, OTHER ==
[2021-02-03 23:43] VITALS: PULSE 78
--- NOTE | 2021-02-04 01:48 | ED ---
Female Urogenital HPI - General Chief complaint: Vaginal Bleeding Stated complaint: vaginal bleeding, pgt Time Seen by Provider: 02/04/21 00:36 Source: patient, RN notes reviewed Mode of arrival: ambulatory Limitations: no limitations - History of Present Illness Initial comments: Patient is a 30-year-old female presenting to the emergency Department with complaints of vaginal bleeding and cramping that started today. Patient states she had a positive home test earlier this week. Patient states this is her first , her WORK AND FAMILY LIFE CONSULTANT is Dr. Blancas. She denies any strong abdominal pain, only some mild lower abdominal cramping, rates it a 1/10. Patient denies any chest pain or shortness of breath, no fevers or chills. She denies any nausea or vomiting, no diarrhea. She denies history of abdominal surgeries. She has no further complaints. Her vital signs are stable upon arrival. - Related Data Home Medications Medication Instructions Recorded Confirmed Cyclobenzaprine [Flexeril] 10 mg PO HS PRN 12/04/19 12/04/19 Previous Rx's Medication Instructions Recorded HYDROcodone/APAP 5-325MG [[place] 5] 1 each PO Q4HR PRN #42 tab 12/07/19 Ibuprofen [Motrin] 600 mg PO Q6HR PRN tab 12/07/19 Allergies Allergy/AdvReac Type Severity Reaction Status Date / Time shellfish derived [Shellfish] Allergy Severe Wheezing Verified 02/03/21 23:43 Sulfa (Sulfonamide Allergy Unknown Unknown Verified 02/03/21 23:43 Antibiotics) Childhood Review of Systems ROS Statement: Those systems with pertinent positive or pertinent negative responses have been documented in the HPI. ROS Other: All systems not noted in ROS Statement are negative. Past Medical History Past Medical History: No Reported History Additional Past Medical History / Comment(s): chronic back pain, herniated discs History of Any Multi-Drug Resistant Organisms: None Reported Past Surgical History: Back Surgery Past Anesthesia/Blood Transfusion Reactions: No Reported Reaction Past Psychological History: No Psychological Hx Reported Smoking Status: Never smoker Past Alcohol Use History: Occasional Past Drug Use History: None Reported - Past Family History Mother Family Medical History: Hypertension General Exam - General Exam Comments Initial Comments: GENERAL: Patient is well-developed and well-nourished. Patient is nontoxic and in no acute distress. HEAD: Atraumatic, normocephalic. EYES: Pupils equal round and reactive to light, extraocular movements intact, sclera anicteric, conjunctiva are normal. Eyelids were unremarkable. ENT: Moist mucous membranes. NECK: Normal range of motion, supple without lymphadenopathy or JVD. LUNGS: Unlabored respirations. Breath sounds clear to auscultation bilaterally and equal. No wheezes rales or rhonchi. HEART: Regular rate and rhythm without murmurs, rubs or gallops. ABDOMEN: Soft, nontender, normoactive bowel sounds. No guarding, no rebound. No masses appreciated. : Deferred MUSCULOSKELETAL: Normal extremities with adequate strength and normal range of motion, no pitting or edema. No clubbing or cyanosis. NEUROLOGICAL: Patient is alert and oriented x 3. SKIN: Warm, Dry, normal turgor, no rashes or lesions noted. Limitations: no limitations Course Vital Signs 02/03/21 02/04/21 23:38 04:59 Temperature 98.3 F 97.8 F Pulse Rate 78 78 Respiratory 22 18 Rate Blood Pressure 127/76 113/80 O2 Sat by Pulse 100 100 Oximetry Medical Decision Making - Medical Decision Making Patient is a 30-year-old female here, early stages of , presenting for vaginal bleeding and cramping that started today. Her vitals are stable upon arrival. Labs are unremarkable, hCG Quant is only 10.7 today, urine shows no evidence of infection. Ultrasound today shows a possible ectopic gestational sac on the left side, measures approximately 2.5 x 1.8 x 2 cm. There is a structure that could be a pole measuring 9 mm but no evidence of cardiac activity, this could be ectopic demise. Patient's pain is very minimal, she has minimal cramping. Patient's blood type is A+. I did discuss case with Dr. Maria who is telephone order clerk for Dr. Blancas. She recommends a dose of methotrexate, and to follow-up with Dr. Blancas on Monday for repeat hCG levels. I discussed these findings with the patient who is agreeable to this plan of care. Return parameters were discussed with the patient she verbalized unde rstanding. Case discussed with Dr. Rider. - Lab Data Result diagrams: 02/04/21 02:00 02/04/21 02:00 Lab Results 02/04/21 02/04/21 02/04/21 Range/Units 01:55 02:00 02:00 WBC 11.3 H (3.8-10.6) k/uL RBC 4.33 (3.80-5.40) m/uL Hgb 13.7 (11.4-16.0) gm/dL Hct 39.5 (34.0-46.0) % MCV 91.1 (80.0-100.0) fL MCH 31.6 (25.0-35.0) pg MCHC 34.7 (31.0-37.0) g/dL RDW 11.7 (11.5-15.5) % Plt Count 397 (150-450) k/uL MPV 7.2 Neutrophils % 86 % Lymphocytes % 9 % Monocytes % 4 % Eosinophils % 1 % Basophils % 0 % Neutrophils # 9.7 H (1.3-7.7) k/uL Lymphocytes # 1.0 (1.0-4.8) k/uL Monocytes # 0.4 (0-1.0) k/uL Eosinophils # 0.1 (0-0.7) k/uL Basophils # 0.0 (0-0.2) k/uL Sodium 136 L (137-145) mmol/L Potassium 4.3 (3.5-5.1) mmol/L Chloride 104 (98-107) mmol/L Carbon Dioxide 24 (22-30) mmol/L Anion Gap 8 mmol/L BUN 12 (7-17) mg/dL Creatinine 0.68 (0.52-1.04) mg/dL Est GFR (CKD-EPI)AfAm >90 (>60 ml/min/1.73 sqM) Est GFR (CKD-EPI)NonAf >90 (>60 ml/min/1.73 sqM) Glucose 110 H (74-99) mg/dL Calcium 9.5 (8.4-10.2) mg/dL Total Bilirubin 0.4 (0.2-1.3) mg/dL AST 18 (14-36) U/L ALT 12 (4-34) U/L Alkaline Phosphatase 67 (38-126) U/L Total Protein 7.4 (6.3-8.2) g/dL Albumin 4.4 (3.5-5.0) g/dL HCG, Quant 10.7 mIU/mL Urine Color Urine Appearance (Clear) Urine pH (5.0-8.0) Ur Specific [place] (1.001-1.035) Urine Protein (Negative) Urine Glucose (UA) (Negative) Urine Ketones (Negative) Urine Blood (Negative) Urine Nitrite (Negative) Urine Bilirubin (Negative) Urine Urobilinogen (<2.0) mg/dL Ur Leukocyte Esterase (Negative) Urine RBC (0-5) /hpf Urine WBC (0-5) /hpf Ur Squamous Epith Cells (0-4) /hpf Amorphous Sediment (None) /hpf Urine Bacteria (None) /hpf Urine Mucus (None) /hpf Blood Type Blood Type Confirm A Positive Blood Type Recheck Bld Type Recheck Status Antibody Screen Spec Expiration Date 02/04/21 02/04/21 Range/Units 02:00 Unknown WBC (3.8-10.6) k/uL RBC (3.80-5.40) m/uL Hgb (11.4-16.0) gm/dL Hct (34.0-46.0) % MCV (80.0-100.0) fL MCH (25.0-35.0) pg MCHC (31.0-37.0) g/dL RDW (11.5-15.5) % Plt Count (150-450) k/uL MPV Neutrophils % % Lymphocytes % % Monocytes % % Eosinophils % % Basophils % % Neutrophils # (1.3-7.7) k/uL Lymphocytes # (1.0-4.8) k/uL Monocytes # (0-1.0) k/uL Eosinophils # (0-0.7) k/uL Basophils # (0-0.2) k/uL Sodium (137-145) mmol/L Potassium (3.5-5.1) mmol/L Chloride (98-107) mmol/L Carbon Dioxide (22-30) mmol/L Anion Gap mmol/L BUN (7-17) mg/dL Creatinine (0.52-1.04) mg/dL Est GFR (CKD-EPI)AfAm (>60 ml/min/1.73 sqM) Est GFR (CKD-EPI)NonAf (>60 ml/min/1.73 sqM) Glucose (74-99) mg/dL Calcium (8.4-10.2) mg/dL Total Bilirubin (0.2-1.3) mg/dL AST (14-36) U/L ALT (4-34) U/L Alkaline Phosphatase (38-126) U/L Total Protein (6.3-8.2) g/dL Albumin (3.5-5.0) g/dL HCG, Quant mIU/mL Urine Color Light Yellow Urine Appearance Clear (Clear) Urine pH 6.5 (5.0-8.0) Ur Specific [place] 1.007 (1.001-1.035) Urine Protein Negative (Negative) Urine Glucose (UA) Negative (Negative) Urine Ketones Negative (Negative) Urine Blood Trace H (Negative) Urine Nitrite Negative (Negative) Urine Bilirubin Negative (Negative) Urine Urobilinogen <2.0 (<2.0) mg/dL Ur Leukocyte Esterase Negative (Negative) Urine RBC 1 (0-5) /hpf Urine WBC 4 (0-5) /hpf Ur Squamous Epith Cells 1 (0-4) /hpf Amorphous Sediment Rare H (None) /hpf Urine Bacteria Occasional H (None) /hpf Urine Mucus Rare H (None) /hpf Blood Type A Positive Blood Type Confirm Blood Type Recheck No Previous Record Bld Type Recheck Status CABO Indicated Antibody Screen NEGATIVE Spec Expiration Date 02/07/20212299 Disposition Clinical Impression: Ectopic Disposition: HOME SELF-CARE Condition: Stable Instructions (If sedation given, give patient instructions): Ectopic (DC) Additional Instructions: Please return to the Emergency Department if symptoms worsen or any other concerns. Recommend pelvic rest, no intercourse. May take tylenol or motrin for any discomfort. Please follow-up with Dr. Blancas's office on Monday for repeat hCG levels. Is patient prescribed a controlled substance at d/c from ED?: No Referrals: Vito Soriano MD [Primary Care Provider] - 1-2 days Kristyn Blancas DO [Doctor of Osteopathic Medicine] - 1-2 days Time of Disposition: 03:55
[2021-02-04 02:05] LABS: Amorphous Sediment,Urine Rare /hpf; Appearance,Urine Clear (Clear); Bacteria,Urine Occasional /hpf; Bilirubin,Urine Negative (Negative); Blood,Urine Trace (Negative); Color,Urine Light Yellow; Glucose,Urine (UA) Negative (Negative); Ketones,Urine Negative (Negative); Leukocyte Esterase,Urine Negative (Negative); Mucus,Urine Rare /hpf; Nitrite,Urine Negative (Negative); PH, Urine 6.5 (5.0-8.0); Protein,Urine Negative (Negative); RBC,Urine 1 /hpf (0-5); Specific Gravity,Urine 1.007 (1.001-1.035); Squamous Epithelial Cell,Urine 1 /hpf (0-4); Urobilinogen,Urine <2.0 mg/dL (<2.0); WBC,Urine 4 /hpf (0-5)
[2021-02-04 02:12] LABS: Basophils % (A) 0 %; Eosinophils # (A) 0.1 k/uL (0-0.7); Eosinophils % (A) 1 %; HCT 39.5 % (34.0-46.0); HGB 13.7 gm/dL (11.4-16.0); Lymphocytes % (A) 9 %; MCH 31.6 pg (25.0-35.0); MCHC 34.7 g/dL (31.0-37.0); MCV 91.1 fL (80.0-100.0); Mean Platelet Volume 7.2; Monocytes # (A) 0.4 k/uL (0-1.0); Monocytes % (A) 4 %; Neutrophils # (A) 9.7 k/uL (1.3-7.7); Neutrophils % (A) 86 %; Platelet Count 397 k/uL (150-450); RBC 4.33 m/uL (3.80-5.40); RDW 11.7 % (11.5-15.5); WBC 11.3 k/uL (3.8-10.6)
[2021-02-04 02:19] LABS: ALT 12 U/L (4-34); AST 18 U/L (14-36); African American GFR (CKD) >90 (>60 ml/min/1.73 sqM); Albumin 4.4 g/dL (3.5-5.0); Alkaline Phosphatase 67 U/L (38-126); Anion Gap 8 mmol/L; Blood Urea Nitrogen 12 mg/dL (7-17); Calcium 9.5 mg/dL (8.4-10.2); Carbon Dioxide 24 mmol/L (22-30); Chloride 104 mmol/L (98-107); Glucose 110 mg/dL (74-99); Non-African American GFR(CKD) >90 (>60 ml/min/1.73 sqM); Potassium 4.3 mmol/L (3.5-5.1); Sodium 136 mmol/L (137-145); Total Bilirubin 0.4 mg/dL (0.2-1.3); Total Protein 7.4 g/dL (6.3-8.2)
--- NOTE | 2021-02-04 02:39 | US ---
EXAMINATION TYPE: Transabdominal DATE OF EXAM: 02/04/2021 1:45 AM COMPARISON: NONE CLINICAL HISTORY: , bleeding, cramping. Bleeding and cramping. . EXAM PERFORMED: Transvaginal (TV) and Transabdominal (TA) EXAM MEASUREMENTS: GESTATIONAL AGE / DATING Physician Established: Not yet established. Dates by LMP: (4 weeks/5 days) EDC: 10/09/2021 Dates by First Scan: This is first scan. Dates by Current Scan for: No IUP seen. Suspicious left adnexal lesion as mentioned below. MATERNAL ANATOMY Uterus: 7.7 x 5.0 x 3.6 cm. Anteverted. Cluster of anechoic areas seen in cervix: 0.9 x 0.7 x 0.4 cm. Fluid-appearing anechoic area seen in cervix: 1.6 x 0.7 x 0.3 cm. Right Ovary: 3.2 x 2.4 x 2.4 cm. Follicles seen. Left Ovary: 2.8 x 1.6 x 2.1 cm. Follicles seen. Post CDS / Adnexa: *Anechoic area seen within the left adnexa measuring 2.5 x 1.8 x 2.2 cm with hyper echoic component within. Presence of free fluid: None seen. Presence of corpus luteal cyst: Not seen. GESTATION / SURVEY Possible CRL within left adnexa versus other lesion: 0.89 cm. (6 weeks/6 days) Possible MSD Within left adnexa: 2.03 cm. (6 weeks/4 days) Yolk Sac (normal less than 6mm): Not seen. Heart Rate: None seen. IUP: No evidence of IUP. Area seen within left adnexa between uterus and left ovary as mentioned above. Date of LMP: 01/02/2021 Beta HcG (if available): Not available. IMPRESSION: There is possible ectopic gestational sac on the left side. there is a structure that could be a pole that measures 9 mm but there is no evidence of cardia c activity. This could be ectopic demise. Multiple cervical cysts. Empty uterus.
[2021-02-04 02:47] LABS: HCG,Quantitative Serum 10.7 mIU/mL
[2021-02-04] MEDS ORDERED: METHOTREXATE SODIUM (PF) 25 MG/ML 2 ML VIAL IM ONE (03:08)
[2021-02-04 05:01] VITALS: BP 113/80; RESP 18; TEMP 97.8
== END 2021-02-04 04:59 | disposition home or self-care (01) ==
LOC: EC 23:03
DX: O00.90 Unspecified ectopic pregnancy without intrauterine pregnancy (principal); Z72.89 Other problems related to lifestyle; Z3A.01 Less than 8 weeks gestation of pregnancy
CPT/HCPCS: 36415; 86900; 86901; 80053; 85025; 86850; 81001; 84702; 76801; 76817; 99284; 96372; J9260

== ENCOUNTER → 2021-02-07 | Outpatient (CLI) | payer MEDICAID | END | disposition home or self-care (01) | LOC: LABMAIN 16:02 | PROVIDERS: ATTEND Obstetrics & Gynecology Obstetrics | DX: O00.109 Unspecified tubal pregnancy without intrauterine pregnancy (principal); Z3A.00 Weeks of gestation of pregnancy not specified | CPT/HCPCS: 36415; 84702 ==

== ENCOUNTER → 2021-02-10 | Outpatient (CLI) | payer MEDICAID ==
[2021-02-10 11:05] LABS: HCT 37.4 % (37.2-46.3); HGB 12.3 g/dL (12.0-15.0); MCH 31.1 pg (27.0-32.0); MCHC 32.9 g/dL (32.0-37.0); MCV 94.4 fL (80.0-97.0); Mean Platelet Volume 10.2 fL (9.5-12.2); Platelet Count 359 X 10*3/uL (140-440); RBC 3.96 X 10*6/uL (4.10-5.20); RDW 11.9 % (11.5-14.5); WBC 8.24 X 10*3/uL (4.50-10.00)
[2021-02-10 13:07] LABS: ALT 10 U/L (8-44); AST 10 U/L (13-35); African American GFR (CKD) 134.7 (60.0-200.0); Blood Urea Nitrogen 8.5 mg/dL (9.0-27.0); Non-African American GFR(CKD) 116.3 (60.0-200.0)
[2021-02-10 14:09] LABS: HCG,Quantitative Serum <0.1 (0.0-6.0)
== END | disposition home or self-care (01) ==
LOC: LABWHC1 07:32
PROVIDERS: ATTEND Obstetrics & Gynecology Obstetrics
DX: O00.109 Unspecified tubal pregnancy without intrauterine pregnancy (principal); Z3A.00 Weeks of gestation of pregnancy not specified
CPT/HCPCS: 36415; 82565; 84450; 84460; 84520; 84702; 85027

== ENCOUNTER → 2021-03-05 | Outpatient (CLI) | payer MEDICAID, OTHER | END | disposition home or self-care (01) | LOC: LABWHC1 21:20 | PROVIDERS: ATTEND Emergency Medicine | DX: Z20.822 Contact with and (suspected) exposure to COVID-19 (principal) | CPT/HCPCS: 87635 ==

== ENCOUNTER → 2021-03-06 | Outpatient (CLI) | payer MEDICAID, OTHER | END | disposition home or self-care (01) | LOC: LABWHC1 19:32 | PROVIDERS: ATTEND Emergency Medicine | DX: Z20.822 Contact with and (suspected) exposure to COVID-19 (principal) | CPT/HCPCS: 87635 ==

== ENCOUNTER 2022-08-31 14:49 | Emergency (ER) | payer MEDICAID ==
[2022-08-31] MEDS ORDERED: SODIUM CHLORIDE 0.9% 2,000 ML IV STA (16:46)
[2022-08-31] MEDS ORDERED: METOCLOPRAMIDE 5 MG/ML 2 ML VIAL IVP STA (16:46)
[2022-08-31] MEDS ORDERED: PYRIDOXINE 100 MG/ML 1 ML VIAL IVP STA (16:47)
[2022-08-31 17:08] LABS: Basophils % (A) 0 %; Eosinophils # (A) 0.1 k/uL (0-0.7); Eosinophils % (A) 2 %; HCT 40.2 % (34.0-46.0); HGB 13.8 gm/dL (11.4-16.0); Lymphocytes # (A) 1.4 k/uL (1.0-4.8); Lymphocytes % (A) 17 %; MCH 31.6 pg (25.0-35.0); MCHC 34.2 g/dL (31.0-37.0); MCV 92.5 fL (80.0-100.0); Mean Platelet Volume 7.9; Monocytes # (A) 0.4 k/uL (0-1.0); Monocytes % (A) 5 %; Neutrophils # (A) 5.9 k/uL (1.3-7.7); Neutrophils % (A) 74 %; Platelet Count 310 k/uL (150-450); RBC 4.35 m/uL (3.80-5.40); WBC 7.9 k/uL (3.8-10.6)
[2022-08-31 17:19] LABS: ALT 21 U/L (4-34); AST 26 U/L (14-36); African American GFR (CKD) >90 (>60 ml/min/1.73 sqM); Alkaline Phosphatase 50 U/L (38-126); Amylase 64 U/L (30-110); Anion Gap 9 mmol/L; Blood Urea Nitrogen 8 mg/dL (7-17); Calcium 8.8 mg/dL (8.4-10.2); Carbon Dioxide 20 mmol/L (22-30); Chloride 106 mmol/L (98-107); Glucose 90 mg/dL (74-99); Lipase 98 U/L (23-300); Non-African American GFR(CKD) >90 (>60 ml/min/1.73 sqM); Potassium 4.1 mmol/L (3.5-5.1); Sodium 135 mmol/L (137-145); Total Bilirubin 0.5 mg/dL (0.2-1.3); Total Protein 6.8 g/dL (6.3-8.2)
[2022-08-31 17:33] LABS: Appearance,Urine Cloudy (Clear); Bacteria,Urine Few /hpf; Bilirubin,Urine Negative (Negative); Blood,Urine Trace (Negative); Color,Urine Yellow; Glucose,Urine (UA) Negative (Negative); Ketones,Urine Negative (Negative); Leukocyte Esterase,Urine Large (Negative); Mucus,Urine Occasional /hpf; Nitrite,Urine Negative (Negative); Protein,Urine Negative (Negative); RBC,Urine 3 /hpf (0-5); Specific Gravity,Urine 1.016 (1.001-1.035); Squamous Epithelial Cell,Urine 3 /hpf (0-4); Urobilinogen,Urine <2.0 mg/dL (<2.0); WBC,Urine 1 /hpf (0-5)
[2022-08-31 18:06] VITALS: BP 113/71; PULSE 85; RESP 17; TEMP 98.1
--- NOTE | 2022-08-31 18:12 | ED ---
General Adult HPI - General Chief complaint: Nausea/Vomiting/Diarrhea Stated complaint: 6 weeks preg-vomiting Time Seen by Provider: 08/31/22 16:19 Source: patient Mode of arrival: ambulatory Limitations: no limitations - History of Present Illness Initial comments: 32-year-old female presents emergency department chief complaint of nausea and vomiting in . She also reports lower abdominal cramping and light vaginal bleeding. Patient states that she believes she is about 6.5 weeks . Last menstrual period was [id number]. She states she has been two other times in the past which resulting in missed miscarriage and ectopic . She states she is not on any fertility medications. She states her OB is Dr. Tristan. Denies fever, chills. - Related Data Home Medications Medication Instructions Recorded Confirmed Cyclobenzaprine [Flexeril] 10 mg PO HS PRN 12/04/19 12/04/19 Previous Rx's Medication Instructions Recorded HYDROcodone/APAP 5-325MG [Greeley 5] 1 each PO Q4HR PRN #42 tab 12/07/19 Ibuprofen [Motrin] 600 mg PO Q6HR PRN tab 12/07/19 Cephalexin [Keflex] 500 mg PO BID #10 cap 08/31/22 Doxylamine Succinate/Vit B6 1 each PO HS #12 tab 08/31/22 [Doxylamine-Pyridoxine 10-10 mg] Allergies Allergy/AdvReac Type Severity Reaction Status Date / Time shellfish derived [Shellfish] Allergy Severe Wheezing Verified 08/31/22 15:02 Sulfa (Sulfonamide Allergy Unknown Unknown Verified 08/31/22 15:02 Antibiotics) Childhood Review of Systems ROS Statement: Those systems with pertinent positive or pertinent negative responses have been documented in the HPI. ROS Other: All systems not noted in ROS Statement are negative. Past Medical History Past Medical History: No Reported History Additional Past Medical History / Comment(s): chronic back pain, herniated discs History of Any Multi-Drug Resistant Organisms: None Reported Past Surgical History: Back Surgery Past Anesthesia/Blood Transfusion Reactions: No Reported Reaction Past Psychological History: No Psychological Hx Reported Smoking Status: Never smoker Past Alcohol Use History: Occasional Past Drug Use History: None Reported - Past Family History Mother Family Medical History: Hypertension General Exam Limitations: no limitations General appearance: alert, in no apparent distress Head exam: Present: atraumatic, normocephalic, normal inspection Eye exam: Present: normal appearance ENT exam: Present: normal exam, mucous membranes moist Neck exam: Present: normal inspection. Absent: tenderness, meningismus, lymphadenopathy Respiratory exam: Present: normal lung sounds bilaterally. Absent: respiratory distress, wheezes, rales, rhonchi, stridor Cardiovascular Exam: Present: regular rate, normal rhythm, normal heart sounds. Absent: systolic murmur, diastolic murmur, rubs, gallop, clicks GI/Abdominal exam: Present: soft, normal bowel sounds. Absent: distended, tenderness, guarding, rebound, rigid Extremities exam: Present: normal inspection, full ROM, normal capillary refill. Absent: tenderness, pedal edema, joint swelling, calf tenderness Back exam: Present: normal inspection Neurological exam: Present: alert, oriented X3 Psychiatric exam: Present: normal affect, normal mood Skin exam: Present: warm, dry, intact, normal color. Absent: rash Course Vital Signs 08/31/22 08/31/22 15:00 18:25 Temperature 98.2 F 98.1 F Pulse Rate 79 85 Respiratory 18 17 Rate Blood Pressure 112/70 113/71 O2 Sat by Pulse 99 98 Oximetry Medical Decision Making - Medical Decision Making Was pt. sent in by a medical professional or institution (, PA, LEATHER STITCHER, urgent care, hospital, or intermediate...) When possible be specific @ -[No] Did you speak to anyone other than the patient for history (EMS, parent, family, police, friend...)? What history was obtained from this source @ -[No] Did you review nursing and triage notes (agree or disagree)? Why? @ -[I reviewed and agree with nursing and triage notes] Were old charts reviewed (outside hosp., previous admission, EMS record, old EKG, old radiological studies, urgent care reports/EKG's, intermediate records)? Report findings @ -[blood bank records A+ blood type ] Differential Diagnosis (chest pain, altered mental status, abdominal pain women, abdominal pain men, vaginal bleeding, weakness, fever, dyspnea, syncope, headache, dizziness, GI bleed, back pain, seizure, CVA, palpatations, mental health, musculoskeletal)? @ -[threatened miscarriage, ectopic , normal intrauterine , vomiting in , this is not all-inclusive] EKG interpreted by me (3pts min.). @ -[None] X-rays interpreted by me (1pt min.). @ -[None done] CT interpreted by me (1pt min.). @ -[None done] U/S interpreted by me (1pt. min.). @ -[Ultrasound showed single live intrauterine , possible subchorionic hemorrhage] What testing was considered but not performed or refused? (CT, X-rays, U/S, labs)? Why? @ -[None] What meds were considered but not given or refused? Why? @ -[None] Did you discuss the management of the patient with other professionals (professionals i.e. Dr., PA, LEATHER STITCHER, lab, RT, psych nurse, protective services social worker, saw superintendent, teacher, protection officer, case management social worker)? Give summary @ -[No] Was smoking cessation discussed for >3mins.? @ -[No] Was critical care preformed (if so, how long)? @ -[No] Were there social determinants of health that impacted care today? How? (Homelessness, low income, unemployed, alcoholism, drug addiction, transportation, low edu. Level, literacy, decrease access to med. care, assisted, rehab)? @ -[No] Was there de-escalation of care discussed even if they declined (Discuss DNR or withdrawal of care, Hospice)? DNR status @ -[No] What co-morbidities impacted this encounter? (DM, HTN, Smoking, COPD, CAD, Cancer, CVA, ARF, Chemo, Hep., AIDS, mental health diagnosis, sleep apnea, morbid obesity)? @ -[None] Was patient admitted / discharged? Hospital course, mention meds given and route, prescriptions, significant lab abnormalities, going to OR and other pertinent info. @ -[Discharged. Patient is in the emergency department chief complaint of nausea and vomiting in with lower abdominal cramping and light vaginal spotting. Patient's blood type A+ by her blood bank records and does not need rhogam. Patient given IV fluids, reglan, B6 which improved her symptoms and she was able to tolerate food and liquids in the ED. US showed single live intrauterine . CBC and CMP within normal limits. UA showed few bacteria which will be treated as asymptomatic bacteriuria with keflex. Patient was requesting medication for home for nausea. prescription for doxylamine/B6 sent. Advised follow up to OB. Case discussed with my attending, Dr. Coello ] Undiagnosed new problem with uncertain prognosis? @ -[No] Drug Therapy requiring intensive monitoring for toxicity (Heparin, Nitro, Insulin, Cardizem)? @ -[No] Were any procedures done? @ -[No] Diagnosis/symptom? @ -[Threatened miscarriage] Acute, or Chronic, or Acute on Chronic? @ -[acute] Uncomplicated (without systemic symptoms) or Complicated (systemic symptoms)? @ -[uncomplicated] Side effects of treatment? @ -[No] Exacerbation, Progression, or Severe Exacerbation? @ -[No] Poses a threat to life or bodily function? How? (Chest pain, USA, PA, pneumonia, PE, COPD, DKA, ARF, appy, cholecystitis, CVA, Diverticulitis, Homicidal, Suicidal, threat to staff... and all critical care pts) @ -[No] - Lab Data Result diagrams: 08/31/22 16:50 08/31/22 16:50 Lab Results 08/31/22 08/31/22 08/31/22 Range/Units 16:50 16:50 16:50 WBC 7.9 (3.8-10.6) k/uL RBC 4.35 (3.80-5.40) m/uL Hgb 13.8 (11.4-16.0) gm/dL Hct 40.2 (34.0-46.0) % MCV 92.5 (80.0-100.0) fL MCH 31.6 (25.0-35.0) pg MCHC 34.2 (31.0-37.0) g/dL RDW 12.0 (11.5-15.5) % Plt Count 310 (150-450) k/uL MPV 7.9 Neutrophils % 74 % Lymphocytes % 17 % Monocytes % 5 % Eosinophils % 2 % Basophils % 0 % Neutrophils # 5.9 (1.3-7.7) k/uL Lymphocytes # 1.4 (1.0-4.8) k/uL Monocytes # 0.4 (0-1.0) k/uL Eosinophils # 0.1 (0-0.7) k/uL Basophils # 0.0 (0-0.2) k/uL Sodium 135 L (137-145) mmol/L Potassium 4.1 (3.5-5.1) mmol/L Chloride 106 (98-107) mmol/L Carbon Dioxide 20 L (22-30) mmol/L Anion Gap 9 mmol/L BUN 8 (7-17) mg/dL Creatinine 0.56 (0.52-1.04) mg/dL Est GFR (CKD-EPI)AfAm >90 (>60 ml/min/1.73 sqM) Est GFR (CKD-EPI)NonAf >90 (>60 ml/min/1.73 sqM) Glucose 90 (74-99) mg/dL Calcium 8.8 (8.4-10.2) mg/dL Total Bilirubin 0.5 (0.2-1.3) mg/dL AST 26 (14-36) U/L ALT 21 (4-34) U/L Alkaline Phosphatase 50 (38-126) U/L Total Protein 6.8 (6.3-8.2) g/dL Albumin 4.0 (3.5-5.0) g/dL Amylase 64 (30-110) U/L Lipase 98 (23-300) U/L HCG, Quant mIU/mL Urine Color Yellow Urine Appearance Cloudy H (Clear) Urine pH 7.0 (5.0-8.0) Ur Specific Perry 1.016 (1.001-1.035) Urine Protein Negative (Negative) Urine Glucose (UA) Negative (Negative) Urine Ketones Negative (Negative) Urine Blood Trace H (Negative) Urine Nitrite Negative (Negative) Urine Bilirubin Negative (Negative) Urine Urobilinogen <2.0 (<2.0) mg/dL Ur Leukocyte Esterase Large H (Negative) Urine RBC 3 (0-5) /hpf Urine WBC 1 (0-5) /hpf Ur Squamous Epith Cells 3 (0-4) /hpf Urine Bacteria Few H (None) /hpf Urine Mucus Occasional H (None) /hpf 08/31/22 Range/Units 18:03 WBC (3.8-10.6) k/uL RBC (3.80-5.40) m/uL Hgb (11.4-16.0) gm/dL Hct (34.0-46.0) % MCV (80.0-100.0) fL MCH (25.0-35.0) pg MCHC (31.0-37.0) g/dL RDW (11.5-15.5) % Plt Count (150-450) k/uL MPV Neutrophils % % Lymphocytes % % Monocytes % % Eosinophils % % Basophils % % Neutrophils # (1.3-7.7) k/uL Lymphocytes # (1.0-4.8) k/uL Monocytes # (0-1.0) k/uL Eosinophils # (0-0.7) k/uL Basophils # (0-0.2) k/uL Sodium (137-145) mmol/L Potassium (3.5-5.1) mmol/L Chloride (98-107) mmol/L Carbon Dioxide (22-30) mmol/L Anion Gap mmol/L BUN (7-17) mg/dL Creatinine (0.52-1.04) mg/dL Est GFR (CKD-EPI)AfAm (>60 ml/min/1.73 sqM) Est GFR (CKD-EPI)NonAf (>60 ml/min/1.73 sqM) Glucose (74-99) mg/dL Calcium (8.4-10.2) mg/dL Total Bilirubin (0.2-1.3) mg/dL AST (14-36) U/L ALT (4-34) U/L Alkaline Phosphatase (38-126) U/L Total Protein (6.3-8.2) g/dL Albumin (3.5-5.0) g/dL Amylase (30-110) U/L Lipase (23-300) U/L HCG, Quant 53777.0 mIU/mL Urine Color Urine Appearance (Clear) Urine pH (5.0-8.0) Ur Specific Perry (1.001-1.035) Urine Protein (Negative) Urine Glucose (UA) (Negative) Urine Ketones (Negative) Urine Blood (Negative) Urine Nitrite (Negative) Urine Bilirubin (Negative) Urine Urobilinogen (<2.0) mg/dL Ur Leukocyte Esterase (Negative) Urine RBC (0-5) /hpf Urine WBC (0-5) /hpf Ur Squamous Epith Cells (0-4) /hpf Urine Bacteria (None) /hpf Urine Mucus (None) /hpf Disposition Clinical Impression: Vomiting during , Threatened miscarriage Disposition: HOME SELF-CARE Condition: Stable Instructions (If sedation given, give patient instructions): Nausea and Vomiting in (ED) Additional Instructions: Follow up with your OB. Take antibiotics to completion. Doxylamine/pyridoxine can be taken for nausea. You may take 2 tablets at bedtime. If symptoms persist, may increase dose by 1 tablet daily, with up to 4 tablets daily. (1 tab in am, 1 tab mid-day, 2 tabs at bedtime. If too expensive, may take Unisom with vitamin B6 for same effect. Return to the emergency department for new or worsening symptoms. Prescriptions: Doxylamine Succinate/Vit B6 [Doxylamine-Pyridoxine 10-10 mg] 1 each PO HS #12 tab Cephalexin [Keflex] 500 mg PO BID #10 cap Is patient prescribed a controlled substance at d/c from ED?: No Referrals: None,Stated [Primary Care Provider] - 1-2 days Time of Disposition: 19:04
--- NOTE | 2022-08-31 18:22 | US ---
EXAMINATION TYPE: Transabdominal DATE OF EXAM: 08/31/2022 6:15 PM COMPARISON: NONE CLINICAL INDICATION: Female, 32 years old with history of 6wks preg, abd cramping; Nausea and vomitin g. Slight cramping EXAM PERFORMED: Transvaginal (TV) and Transabdominal (TA) EXAM MEASUREMENTS: GESTATIONAL AGE / DATING Physician Established: Not yet established Dates by LMP: 07/17/22 (6 weeks/3 days) EDC: 04/23/22 Dates by First Scan: No previous this is first scan Dates by Current Scan for: (5 weeks/5 days) EDC: 04/28/23 MATERNAL ANATOMY Uterus: 9.9 x 6.2 x 4.2cm Right Ovary: 3.8 x 2.1 x 2.4cm Left Ovary: 3.3 x 2.2 x 1.5cm Post CDS / Adnexa: Cyst with solid component seen in lt adnexa adjacent to lt ovary. This was seen in the us done in 02/04/21 Presence of free fluid: Yes. Some in lt adnexa and cul de sac Presence of corpus luteal cyst: Yes in rt ov measuring 1.3 x 1.7 x 1.5cm Presence of subchorionic bleed: Yes adjacent to gest sac GESTATION / SURVEY CRL: 0.25cm (5 weeks/6 days) MSD: 1.4cm (5 weeks/3 days) Yolk Sac (normal less than 6mm): 2.3mm Heart Rate: 112 bpm Rhythm: Normal IUP: Viable IUP Date of LMP: 07/17/22 Beta HcG (if available): Not available at this time Single live IUP seen measuring 5weeks 5 days. Possible subchorionic hemorrhage seen. Lt adnexal cyst seen IMPRESSION: 1. Single live intrauterine . 2. Cannot exclude subchorionic hemorrhage. 3. Probable corpus luteal cyst left ovary.
== END 2022-08-31 19:24 | disposition home or self-care (01) ==
LOC: EC 14:49
DX: O21.9 Vomiting of pregnancy, unspecified (principal); O20.0 Threatened abortion; Z88.2 Allergy status to sulfonamides; Z91.013 Allergy to seafood; Z3A.01 Less than 8 weeks gestation of pregnancy
CPT/HCPCS: 36415; 80053; 82150; 83690; 85025; 81001; 84702; 76801; 76817; 99285; 96374; 96375; 96361 ×2; J3415; J2765

== ENCOUNTER 2023-03-10 21:27 | Outpatient (CLI) | payer MEDICAID ==
[2023-03-10 22:35] VITALS: BP 108/66; PULSE 88; RESP 16; TEMP 98.7
--- NOTE | 2023-03-11 11:10 | P.MSEPDOC ---
Presenting Problems - Arrival Data Date of Arrival on Unit: 03/10/23 Time of Arrival on Unit: 21:27 Mode of Transport: Ambulatory - Complaint OB-Reason for Admission/Chief Complaint: Other Comment: Abdominal tightness x1-2 hours Medical History - Information : 3 Para: 0 Term: 0 : 0 Abortions: Spontaneous or Elective: 2 Number of Living Children: 0 - Gestational Age Gestational Age by SALVADOR (wks/days): 33 Weeks and 5 Days - History Complications: GDM Review of Systems - Review of Systems Constitutional: No problems Breast: No problems ENT: No problems Cardiovascular: No problems Respiratory: No problems Gastrointestinal: No problems Genitourinary: No problems Musculoskeletal: No problems Neurological: No problems Skin: No problems Vital Signs - Temperature Temperature: 98.7 F Temperature Source: Temporal Artery Scan - Pulse Right Pulse Oximetery Pulse Rate: 88 Pulse Assessment Method: Pulse Oximetry - Respirations Respiratory Rate: 16 Oxygen Delivery Method: Room Air O2 Sat by Pulse Oximetry: 97 - Blood Pressure Right Arm Supine Blood Pressure: 108/66 Blood Pressure Mean: 80 Blood Pressure Source: Automatic Cuff Medical Screen Scoring - Cervical Exam Membranes: Intact - Uterine Contractions Frequency From (mins): 0 Frequency To (mins): 0 - Assessment - Baby A Baseline FHR: 135 Heart Rate - NICHD Category: Category I (Normal) NST: Reactive Physician Notification - Physician Notified Physician Notified Date: 03/10/23 Physician Notified Time: 21:55 Physician: Jair Fine Order Received: Yes - Notification Comment Comment: Dr. Fine notified of pt's arrival to triage with c/o abdominal t ightness x1-2 hours. Report given including maternal and status, VS, reactive NST, and assessment. Pt okay to D/C at this time. Maternal Triage Index - Maternal Triage Index Presenting for scheduled procedure w/no complaint: No - Stat/Priority 1 Stat Priority 1: No - Urgent/Priority 2 Urgent Priority 2: No - Prompt/Priority 3 Prompt Priority 3: No - Non-Urgent/Priority 4 Non-Urgent Priority 4: Yes Criteria Met for Priority 4: Pt is a with SALVADOR 04/23/23 here at 33.5 weeks of gestation with c/o abdominal tightness for the past 1-2 hours. 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 Pt states that her belly feels "tighter" than normal but not painful. Pt denies the tightness coming or going, and reports no other symptoms. Disposition - Disposition OB Disposition: Discharge to home Discharge Date: 03/10/23 Discharge Time: 22:03 I agree with the RN Medical Screening Exam: Yes Physician's MSE Comment: I have neither seen nor examined the patient. Case reviewed; plan agreed upon as documented in EMR&OBIX.: Yes Diagnosis: RELATED CONDITIONS, UNSPECIFIED, THIRD TRIMESTER
== END 2023-03-10 22:03 | disposition home or self-care (01) ==
LOC: FBPOP 21:27
PROVIDERS: ATTEND Obstetrics & Gynecology
DX: O26.893 Other specified pregnancy related conditions, third trimester (principal); Z3A.33 33 weeks gestation of pregnancy; Z88.2 Allergy status to sulfonamides; Z91.013 Allergy to seafood
CPT/HCPCS: 59025; 99213

== ENCOUNTER 2023-04-05 10:25 | Inpatient (IN) | payer MEDICAID ==
[2023-04-05] MEDS ORDERED: TRANEXAMIC 1,000 MG/100ML-NACL 1,000 MG in EMPTY BAG 1 BAG IV PRN (11:03)
[2023-04-05] MEDS ORDERED: METHYLERGONOVINE 0.2 MG/ML 1 ML AMP IM PRN (11:03)
[2023-04-05] MEDS ORDERED: OXYTOCIN 10 UNIT/ML 1 ML VIAL IM PRN (11:03)
[2023-04-05] MEDS ORDERED: CITRIC ACID-SODIUM CITRATE 15 ML CUP PO ONE (11:03)
[2023-04-05] MEDS ORDERED: LACTATED RINGERS 1,000 ML IV ONE (11:03)
[2023-04-05] MEDS ORDERED: miSOPROStoL 200 MCG TAB PO PRN (11:03)
[2023-04-05] MEDS ORDERED: CARBOPROST TROMETHAMINE 250 MCG/ML 1 ML AMP IM PRN (11:03)
[2023-04-05 11:13] LABS: Glucose,Whole Blood 104 mg/dL (70-110)
[2023-04-05] MEDS ORDERED: OXYTOCIN 30 UNITS/500 ML NS 30 UNIT in SALINE 1 500ML.BAG IV SCH ×2 (11:15→12:58)
[2023-04-05 11:25] LABS: Basophils % (A) 0 %; Eosinophils # (A) 0.2 k/uL (0-0.7); Eosinophils % (A) 2 %; HCT 34.9 % (34.0-46.0); HGB 12.2 gm/dL (11.4-16.0); Lymphocytes # (A) 1.8 k/uL (1.0-4.8); Lymphocytes % (A) 19 %; MCV 91.6 fL (80.0-100.0); Mean Platelet Volume 8.1; Monocytes # (A) 0.6 k/uL (0-1.0); Monocytes % (A) 6 %; Neutrophils # (A) 6.7 k/uL (1.3-7.7); Neutrophils % (A) 71 %; Platelet Count 259 k/uL (150-450); RBC 3.81 m/uL (3.80-5.40); RDW 13.5 % (11.5-15.5); WBC 9.5 k/uL (3.8-10.6)
[2023-04-05] MEDS: LACTATED RINGERS 1,000 ML IV SCH ×3 (12:01→20:36)
[2023-04-05] MEDS ORDERED: ONDANSETRON 4 MG/2 ML VIAL ONE (12:10)
[2023-04-05] MEDS ORDERED: NALBUPHINE 10 MG/ML (10 ML MDV) ONE (12:10)
[2023-04-05] MEDS ORDERED: MORPHINE SULFATE (PF) 0.3 MG/0.3 ML SYR ONE (12:10)
[2023-04-05] MEDS ORDERED: PHENYLEPHRINE-0.9% NACL SYG 1,000 MCG/10 ML SYRINGE ONE (12:10)
[2023-04-05] MEDS ORDERED: OXYTOCIN 30 UNITS/500 ML NS BAG IV ONE (12:10)
--- NOTE | 2023-04-05 12:13 | P.HPOB ---
History of Present Illness H&P Date: 04/05/23 Chief Complaint: IUP at 37-4/7 weeks, SROM, breech presentation This is a 32-year-old at 37-4/7 weeks that presents with complaints of spontaneous rupture membranes and contractions. Patient states her water broke around 9am and she was uncomfortable with increased pressure noted throughout the night. she did eat at 8 am, hard boiled eggs with cottage cheese. she laid down after she worked last night and felt a pop with a gush of fluid, contractions began about half an hour later every 5 to 10 minutes. Patient was initially 4 to 5 cm upon presentation to labor and delivery with grossly ruptured membranes, on recheck she is noted to be 6 cm with meconium s tained fluid. Patient is uncomfortable with contractions. Has been receiving routine care which has been essentially uncomplicated. Patient underwent ultrasound on March 23 revealing breech presentation. Patient notes good movement. Review of Systems Constitutional: Denies chills, Denies fatigue, Denies fever Ears, nose, mouth and throat: Denies headache Cardiovascular: Reports leg edema Past Medical History Past Medical History: No Reported History Additional Past Medical History / Comment(s): chronic back pain, herniated discs History of Any Multi-Drug Resistant Organisms: None Reported Past Surgical History: Back Surgery Past Anesthesia/Blood Transfusion Reactions: No Reported Reaction Smoking Status: Never smoker - Past Family History Mother Family Medical History: Hypertension Medications and Allergies Home Medications Medication Instructions Recorded Confirmed Type Aspirin [[place] Aspirin EC] 81 mg PO DAILY 03/10/23 04/05/23 History Iron 18 mg PO DAILY 03/10/23 04/05/23 History Vit No.179/Iron/Folic 1 each PO DAILY 03/10/23 04/05/23 History [ Tablet] Allergies Allergy/AdvReac Type Severity Reaction Status Date / Time shellfish derived [Shellfish] Allergy Severe Wheezing Verified 04/05/23 10:52 Sulfa (Sulfonamide Allergy Unknown Unknown Verified 04/05/23 10:52 Antibiotics) Childhood Exam Osteopathic Statement: *. No significant issues noted on an osteopathic structural exam other than those noted in the History and Physical/Consult. Intake and Output 04/04/23 04/05/23 04/05/23 22:59 06:59 14:59 Other: Weight 89.811 kg Targeted physical exam is performed this date General is well-nourished well- developed female. Patient's breathing is noted to be unlabored, heart has a regular rate and rhythm, abdomen is gravid, on initial cervical exam with RN she is 4 to 5 cm no presenting part breech presentation is confirmed with ultrasound, recheck noted 6 cm with meconium stained fluid. heart tones noted to be category 1 and she is boaz every 3 minutes. Results Result Diagrams: 04/05/23 11:19 Assessment and Plan (1) 37 or more weeks gestation of Current Visit: Yes Status: Acute Code(s): QCD3911 - SNOMED Code(s): 41 253213 (2) SROM (spontaneous rupture of membranes) Current Visit: Yes Status: Acute Code(s): [id number] - SNOMED Code(s): 810723651 (3) Breech presentation Current Visit: Yes Status: Acute Code(s): O32.1XX0 - MATERNAL CARE FOR BREECH PRESENTATION, UNSP SNOMED Code(s): 7731538 (4) Active labor Current Visit: Yes Status: Acute Code(s): [id number] - SNOMED Code(s): 398572058 Plan: 32-year-old G3, P0 at 37-4/7 weeks that presents to labor delivery with complaints of spontaneous rupture of membranes. Patient is noted to be grossly ruptured, on recheck patient is noted to be 6 cm with meconium stained fluid. Given patient is ruptured with noted cervical change we will proceed with primary secondary to breech presentation. Bedside ultrasound confirming breech presentation.
--- NOTE | 2023-04-05 12:56 | P.OP ---
Date of Procedure: 04/05/23 Preoperative Diagnosis: IUP at 37-3/7 weeks, spontaneous rupture of membranes, breech presentation, labor Postoperative Diagnosis: Same Procedure(s) Performed: Primary low-transverse section Anesthesia: spinal Surgeon: Kristyn Blancas Linderman Machine Operator #1: Jair Fine Estimated Blood Loss (ml): 650 IV fluids (ml): 700 Urine output (ml): 600 Pathology: none sent Condition: stable Disposition: observation Indications for Procedure: 33-year-old G3, P0 at 37-3/7 weeks presents with spontaneous rupture of membranes around 9 AM. Patient states contraction began around 930. Patient presented to labor and delivery and was noted to be 4 to 5 cm with no presenting part breech presentation was confirmed with ultrasound. Patient did progress to 6 with questionable meconium stained fluid. Patient had category 1 heart tones boaz every 3 minutes. Operative Findings: Viable male infant delivered at 1229, weight of 7 pounds 5 ounces, Apgars of 9 and 9 at 1 and 5 minutes respectively. Rolan breech presentation. Description of Procedure: The patient was prepped and draped in the usual fashion after spinal anesthesia was administered the anesthesia department. A Pfannenstiel incision was made and extended of the abdominal cavity without difficulty. The bladder peritoneum was elevated and incised and reflected distally. A 2 cm incision was made in the transverse plane of the lower uterine segment to enter the uterus at which time clear fluid was noted. The incision was extended in both directions using the bandage scissors. The sacrum was encountered within the field and delivered up and through the incision, followed by the abdomen arms were swept in front of the face and the head was delivered without difficulty. The cord was doubly clamped, cut, and the infant was passed for resuscitative measures with weight and Apgars as noted above. The placenta was delivered manually, intact, and was grossly normal with a grossly normal three-vessel cord. The uterus was exteriorized and the interior cavity of the uterus swept of any remaining placental and membranous fragments with a laparotomy sponge. The margins of the incision were grasped with Maxwell clamps and the incision closed in 2 layers. First layer was a running locking layer of 0 chromic catgut from margin to margin followed by a second layer of imbricating 0 Vicryl from margin to margin. Any small points of bleeding were then made hemostatic with the Bovie. Once hemostasis was achieved, the posterior cul-de-sac was suctioned with a guard and the uterine and ovarian findings are as noted above. The uterus was replaced within the abdominal cavity and the gutters swept of any remaining blood fluid or clot. The incision was again reexamined and hemostasis was noted to be excellent. Any small point of bleeding were made hemostatic with the Bovie. Once hemostasis was achieved the parietal peritoneum was loosely reapproximated. The layer of muscles were examined and made hemostatic with the Bovie. Attention was then turned to the fascia which was closed with a running stitches of 0 Vicryl in a running fashion from 1 lateral edge to the other. The subcutaneous tissues were irrigated, made hemostatic with the Bovie, and reapproximated with a running stitch of 30 Vicryl. The skin was reapproximated with regular surgical jaspreet. Estimated blood loss for the case was approximately 650 mL. All sponge instrument and needle counts are correct. There were no complications. The patient tolerated the procedure well and proceeded to the recovery room in stable condition. Both mother and are resting comfortably in recovery.
[2023-04-05] MEDS ORDERED: ACETAMINOPHEN IV (For NPO) 1,000 MG in EMPTY BAG 1 BAG IVPB PRN (12:58)
[2023-04-05] MEDS ORDERED: NALOXONE 0.4 MG/ML 1 ML VIAL IV PRN (12:58)
[2023-04-05] MEDS ORDERED: diphenhydrAMINE 25 MG CAP PO PRN (12:58)
[2023-04-05] MEDS ORDERED: ZOLPIDEM 5 MG TAB PO PRN (12:58)
[2023-04-05] MEDS ORDERED: diphenhydrAMINE 50 MG/ML 1 ML VIAL IVP PRN ×2 (12:58)
[2023-04-05] MEDS ORDERED: SIMETHICONE 80 MG CHEWABLE PO PRN (12:58)
[2023-04-05] MEDS ORDERED: ONDANSETRON 4 MG/2 ML VIAL IVP PRN (12:58)
[2023-04-05] MEDS ORDERED: METOCLOPRAMIDE 5 MG/ML 2 ML VIAL IVP PRN (12:58)
[2023-04-05] MEDS ORDERED: diphenhydrAMINE 50 MG CAP PO PRN (12:58)
[2023-04-05] MEDS: ACETAMINOPHEN TAB 500 MG TAB PO SCH ×2 (16:59→20:26)
[2023-04-05] MEDS ORDERED: IBUPROFEN IV 800 MG in SODIUM CHLORIDE 0.9% 250 ML IV PRN (18:00)
[2023-04-05] MEDS: IBUPROFEN 600 MG TAB PO SCH ×2 (18:11→23:57)
[2023-04-05] MEDS: SENNOSIDES-DOCUSATE SODIUM 1 EACH TAB PO SCH (20:36)
[2023-04-06] MEDS: ACETAMINOPHEN TAB 500 MG TAB PO SCH ×4 (02:43→21:52)
[2023-04-06] MEDS: LACTATED RINGERS 1,000 ML IV SCH ×5 (03:38→18:40)
[2023-04-06 04:42] LABS: Basophils % (A) 0 %; Eosinophils # (A) 0.2 k/uL (0-0.7); Eosinophils % (A) 2 %; HCT 31.4 % (34.0-46.0); HGB 10.9 gm/dL (11.4-16.0); Lymphocytes # (A) 1.3 k/uL (1.0-4.8); Lymphocytes % (A) 10 %; MCH 32.2 pg (25.0-35.0); MCHC 34.7 g/dL (31.0-37.0); MCV 92.6 fL (80.0-100.0); Mean Platelet Volume 8.4; Monocytes # (A) 0.7 k/uL (0-1.0); Monocytes % (A) 5 %; Neutrophils % (A) 82 %; Platelet Count 231 k/uL (150-450); RBC 3.39 m/uL (3.80-5.40); RDW 13.5 % (11.5-15.5); WBC 13.4 k/uL (3.8-10.6)
[2023-04-06] MEDS: IBUPROFEN 600 MG TAB PO SCH ×3 (06:54→20:30)
[2023-04-06] MEDS: SENNOSIDES-DOCUSATE SODIUM 1 EACH TAB PO SCH ×2 (07:40→19:43)
--- NOTE | 2023-04-06 08:26 | P.PN ---
Progress Note - Text Progress Note Date: 04/06/23 Postoperative day 1 status post section under spinal anesthesia, and intrathecal morphine given for postoperative analgesia, patient doing well, there is no anesthesia related complications, Patient had no headache, vital signs stable , Assessment and plan= postop day 1 status post , doing well there is no anesthesia related complication.
[2023-04-06] MEDS: PRENATAL VIT-IRON-FOLIC ACID 1 EACH TABLET PO SCH (10:14)
[2023-04-07] MEDS: IBUPROFEN 600 MG TAB PO SCH ×3 (00:11→10:46)
[2023-04-07 01:33] VITALS: RESP 16
[2023-04-07] MEDS: ACETAMINOPHEN TAB 500 MG TAB PO SCH ×2 (03:25→13:39)
[2023-04-07 08:10] VITALS: BP 111/72; PULSE 78; TEMP 97.8
--- NOTE | 2023-04-07 09:00 | P.DS ---
Providers Date of admission: 04/05/23 11:17 Expected date of discharge: 04/07/23 Attending physician: Kristyn Blancas Primary care physician: Stated None - Discharge Diagnosis(es) (1) 37 or more weeks gestation of Current Visit: Yes Status: Acute (2) SROM (spontaneous rupture of membranes) Current Visit: Yes Status: Acute (3) Breech presentation Current Visit: Yes Status: Acute (4) Active labor Current Visit: Yes Status: Acute Hospital Course: This is a 32-year-old G3 now P1 021 that presented to labor and delivery on 04/05 with complaints of spontaneous rupture of membranes. Patient had been receiving routine care which have been essentially uncomplicated. Patient did have a diagnosis of gestational diabetes but it was well-controlled with diet alone. Patient was noted to be breech on ultrasound on March 28 also. Patient was noted to be grossly ruptured upon admission and 4 to 5 cm with contractions. Patient was uncomfortable with contractions. Patient was taken back to the operating suite for primary low-transverse section secondary to advanced cervical dilation breech presentation and spontaneous rupture of membranes. was completed without difficulty. For full details on the please see the dictated operative report. Patient delivered a viable male infant at 1229, weight of 7 pounds 5 ounces. Apgars of 9 and 9 at 1 and 5 minutes respectively. Patient's course has been uneventful. In this postoperative day #2 she is ambulating and voiding without difficulty. She is tolerating a regular diet without nausea or vomiting. She states her pain is well-controlled. She denies concerns this morning, and states she is ready for discharge home. Patient Condition at Discharge: Good Plan - Discharge Summary New Discharge Prescriptions: No Action Iron 18 mg PO DAILY Aspirin [Pine Aspirin EC] 81 mg PO DAILY Vit No.179/Iron/Folic [ Tablet] 1 each PO DAILY Discharge Medication List Aspirin [Pine Aspirin EC] 81 mg PO DAILY 03/10/23 [History] Iron 18 mg PO DAILY 03/10/23 [History] Vit No.179/Iron/Folic [ Tablet] 1 each PO DAILY 03/10/23 [History] Follow up Appointment(s)/Referral(s): Kristyn Blancas DO [Doctor of Osteopathic Medicine] - 1 Week Patient Instructions/Handouts: (DC), (GEN) Activity/Diet/Wound Care/Special Instructions: No intercourse, tampons or douching. No heavy lifting greater than a gallon of milk. No driving for two weeks. Call with any fever, shakes or chills, with any pain not alleviated by over the counter meds, or with any questions or concerns. [id number] ibuprofen and Tylenol for discomfort at home. Patient is to call the office for routine postoperative appointment in 2 weeks. Discharge Disposition: HOME SELF-CARE
[2023-04-07] MEDS: SENNOSIDES-DOCUSATE SODIUM 1 EACH TAB PO SCH (10:46)
[2023-04-07] MEDS: PRENATAL VIT-IRON-FOLIC ACID 1 EACH TABLET PO SCH (16:10)
== END 2023-04-07 15:50 | disposition home or self-care (01) | DRG 788 ==
LOC: FBPOP 10:25 → 4FBP 11:17
PROVIDERS: ADMIT Obstetrics & Gynecology Obstetrics; ATTEND Obstetrics & Gynecology Obstetrics
PROC: 10D00Z1 Extraction of Products of Conception, Low, Open Approach (ICD-10-PCS; principal; 2023-04-05 12:00)
DX: O32.1XX0 Maternal care for breech presentation, not applicable or unspecified (principal); O24.429 Gestational diabetes mellitus in childbirth, unspecified control; O77.0 Labor and delivery complicated by meconium in amniotic fluid; Z37.0 Single live birth; Z3A.37 37 weeks gestation of pregnancy; Z79.82 Long term (current) use of aspirin
CPT/HCPCS: 59025; 84112; 85025; 86850; 86900; 86901; 99213